=== PATIENT | female | born 1930 | race Caucasian/White ===

== ENCOUNTER 2017-07-01 12:05 | Inpatient (IN) | payer MEDICARE, OTHER ==
[2017-07-01] VITALS (10 sets, daily range): BP systolic 107–161; BP diastolic 39–85; PULSE 67–86; RESP 12–18; O2SAT 96–100
[~2017-07-01] VITALS: Ht 162.6 cm; Wt 74.0 kg
[~2017-07-01 12:05] MED LIST: ACET650T46 PO; AMLO5TAB2 PO; ASCO100089 PO; ASPI-973 PO; ATOR20TA PO; CHOL500011 PO; DOCU-41 PO; FOLI-52 PO; MECL-114 PO; OXYB5TAB10 PO; PANT40TA2 PO
--- NOTE | 2017-07-01 12:09 | ED.REPORT ---
HPI-General Illness Date of Service Jul 01, 2017 ED Provider: Darrin Faust MD Pt is a 87 y/o female with a history of pacemaker insertion, CAD, HTN, and peripheral vascular disease who presents to the ED via EMS c/o generalized weakness onset this morning. Pt reports she was walking when she felt lightheaded and fell to the floor. She has been feeling weak for the past 2-3 weeks, but her PCP did not address the issue. She doesn't know if she hit her head when she fell. She states that she has had previous symptoms before several years ago. Additional symptoms include nausea, abdominal pain that has resolved, and SOB that has resolved. She denies chest pain, palpitations, vomiting, diarrhea, fever, LOC, or dysuria. Nursing Notes Stated Complaint: WEAKNESS Chief Complaint: General Complaint Nursing Notes Reviewed: Yes Allergies: Coded Allergies: cefazolin (Verified Allergy, Intermediate, ???, 07/01/17) nitroglycerin (Verified Allergy, Intermediate, Severe dizziness, 07/01/17) codeine (Verified Allergy, Mild, Nausea, 07/01/17) Adhesives (Verified Adverse Reaction, Mild, Rash, 07/01/17) Scheduled Amlodipine (Amlodipine) 5 Mg Tablet 5 MG PO DAILY Ascorbic Acid (Vitamin C) 1,000 Mg Tab.chew 1,000 MG PO DAILY Aspirin (Aspirin) 81 Mg Tablet 81 MG PO DAILY Atorvastatin (Lipitor) 20 Mg Tablet 20 MG PO HS Cholecalciferol (Vitamin D3) (Vitamin D3) 5,000 Unit Tablet 5,000 UNIT PO DAILY Multivitamin/Iron/Folic Acid (Centrum Complete Multivit Tab) 1 Each Tablet 1 TAB PO DAILY Pantoprazole DR (Protonix) 40 Mg Tablet.dr 40 MG PO DAILY Scheduled PRN Acetaminophen Extended Release (Tylenol Arthritis Pain Extended-Release) 650 Mg Tablet.er 650 MG PO Q8H PRN PRN For Pain Docusate Sodium (Colace) 100 Mg Capsule 200 MG PO DAILY PRN PRN For Constipation Meclizine (Bonine) 25 Mg Tab.chew 25 MG PO TID PRN PRN For Dizziness Oxybutynin Chloride (Oxybutynin Chloride) 5 Mg Tablet 2.5 MG PO DAILY PRN PRN incontinence General Time Seen by MD: 12:06 Chief Complaint Weakness Hx Obtained From: Patient Arrived By: Ambulance Sudden in Onset?: Yes Caused by: Fall on ground Recent Healthcare: Recent doctor visit Similar Sx Previous: Yes Past Medical History Past Medical History 1. Coronary artery disease, with prior 90% LAD lesion, treated as above. 2. Hyperlipidemia. 3. Excess weight. 4. GERD. 5. Hypertension. 6. Osteoporosis by 2009 DEXA, declines bisphosphonate treatment. 7. Diverticulosis. 8. Urinary incontinence. 9. Chronic dizziness. 10. History of a fall, with subdural hematoma in 2011. 11. Chronic back and abdominal pain of unclear etiology, with negative workup. 12. Elevated alkaline phosphatase Past Surgical History 1. Right humerus open reduction and internal fixation after fracture. 2. Vein stripping. 3. Right hernia repair. 4. Cataract surgery. 5. Colonoscopy in 2002 and 2007. 6. 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 7. LAD stenting after rotablation in 2002 for a 90% LAD lesion. Reports: Pacemaker insertion Smoking History Never Smoker Social History Other Social History: Lives alone Ambulatory Status Wheelchair Review of Systems Full Review of Systems Constitutional: Reports: Weakness - generalized, Denies: Fever Respiratory: Reports: Shortness of breath (resolved) Cardiovascular: Denies: Chest pain, Palpitations GI: Reports: Abdominal pain (resolved), Nausea, Denies: Diarrhea, Vomiting Female: Denies: Dysuria Neurologic: Reports: Lightheaded, Syncope (near), Denies: Change LOC Complete sys rev & neg: except as marked. Physical Exam Vital Signs Vital Signs Date Time Temp Pulse Resp B/P Pulse Ox O2 Delivery O2 Flow Rate FiO2 07/01/17 15:32 83 107/47 07/01/17 15:32 78 137/58 07/01/17 15:31 73 141/51 07/01/17 13:44 86 12 110/39 97 Room Air 07/01/17 13:43 75 12 130/55 98 Room Air 07/01/17 13:42 67 15 138/57 100 Room Air 07/01/17 12:10 35.8 71 15 150/49 96 Room Air Initial VS: Reviewed Head / Eyes: Atraumatic, Normocephalic Neck: Supple, Full range of motion Extremities: Vascular intact, Neuro intact, No swelling, No tenderness Skin: Warm, Dry, No cyanosis Psychiatric: Mood/affect normal, Behavior normal, Normal thought content General/Constitutional: Awake, Alert Respiratory / Chest: Atraumatic, Breath sounds NL, Breath sounds = bilat, No respiratory distress Cardiovascular: Heart rate NL, Regular rhythm, Heart sounds NL Neurologic: Oriented X3, Speech NL, No motor deficits, No sensory deficits, CN II - XII intact, Cerebellar NL Interpretation & Diagnostics Lab Results Interpretation Result Diagram: 07/01/17 1228 07/01/17 1228 Test 07/01/17 12:28 07/01/17 14:09 White Blood Count 8.8th/mm3 (3.8-10.1) Red Blood Count 4.98mil/mm3 (3.90-5.20) Hemoglobin 15.2g/dL (12.0-15.6) Hematocrit 46.5% (35.0-46.0) Mean Corpuscular Volume 93.4fL (81-100) Mean Corpuscular Hemoglobin 30.5pg (27.0-35.0) Mean Corpuscular Hemoglobin Concent 32.7% (32.0-37.0) Red Cell Distribution Width 14.6% (12.3-15.4) Platelet Count 191bil/L (150-400) Neutrophils (%) (Auto) 79.0% (40-74) Lymphocytes (%) (Auto) 14.9% (14-46) Monocytes (%) (Auto) 5.0% (4-12) Eosinophils (%) (Auto) 0.6% (0-5) Basophils (%) (Auto) 0.3% (0-3) Sodium Level 138mEq/L (134-144) Potassium Level 4.6mEq/L (3.5-5.2) Chloride Level 100mEq/L (97-108) Carbon Dioxide Level 22mmol/L (18-29) Blood Urea Nitrogen 30mg/dL (8-27) Creatinine 1.43mg/dL (0.57-1.00) Estimat Glomerular Filtration Rate 50mL/min (>59) Glucose Level 122mg/dL (60-99) Calcium Level 10.1mg/dL (8.5-10.1) Magnesium Level 2.5mg/dL (1.6-2.6) Total Bilirubin 0.4mg/dL (0.0-1.2) Aspartate Amino Transf (AST/SGOT) 27U/L (0-50) Alanine Aminotransferase (ALT/SGPT) 12U/L (0-32) Alkaline Phosphatase 85U/L (25-165) Troponin T 0.010ug/L (0.0-0.011) Pro-B-Type Natriuretic Peptide 564.8pg/mL (0-738) Total Protein 7.6g/dL (6.4-8.4) Albumin 4.3g/dL (3.4-5.0) Lipase 32U/L (13-60) Urine Color Yellow (YELLOW) Urine Appearance Hazy (CLEAR,HAZY) Urine pH 6.0 (5.0-8.0) Urine Specific [place] 1.015 (1.003-1.035) Urine Protein Tracemg/dL (NEG,TRACE) Urine Glucose (UA) Negativemg/dL (NEGATIVE) Urine Ketones Negativemg/dL (NEGATIVE) Urine Occult Blood Negative (NEGATIVE) Urine Nitrite Negative (NEGATIVE) Urine Bilirubin Negative (NEGATIVE) Urine Urobilinogen Normalmg/dL (NORMAL) Urine Leukocyte Esterase Moderate (NEGATIVE) Urine RBC 0-2/hpf (0-2) Urine WBC 6-10/hpf (0-5) Urine Epithelial Cells Moderate/hpf (NONE-MOD) Urine Crystals None seen (NONE SEEN) Urine Bacteria Moderate/hpf (NONE-FEW) Urine Hyaline Casts None/lpf (NONE) Urine Granular Casts None seen (NONE SEEN) Urine Waxy Casts None seen (NONE SEEN) Urine Red Blood Cell Casts None seen (NONE SEEN) Urine White Blood Cell Casts None seen (NONE SEEN) Urine Mucus None seen (None Seen) Urine Trichomonas None seen (NONE SEEN) Urine Yeast None (NONE SEEN) Urinalysis Comment None Urine Culture Reflexed Indicated ECG Interpretation ECG Interpretation: Ventricular-paced rhythm, rate 66 Time: 12:36 Interpreted by: ED physician X-Ray Chest Interpretation Chest Xray Interpretation: IMPRESSION: No acute pulmonary process. Dictated by: Jessie Childress M.D. on 07/01/2017 at 13:17 Approved by: Jessie Childress M.D. on 07/01/2017 at 13:20 View: Portable, 1 view Interpretation / Wet Read by: Interpret - Radiologist Re-Eval/Medical Decision Med Decision/Clinical Course 87-year-old female presenting with weakness times several weeks and near syncope today. There is no cardiac program. She did have some lightheadedness. On arrival she was orthostatic. This improved with IV fluids. Her urine suggests UTI. Other workup was negative. Patient had difficulty ambulating with a walker. She requests to be admitted. No focal neuro deficits to suggest cva. She will be admitted for acute kidney injury, weakness, UTI, near syncope. Resident ordering IV antibiotics. Source of Hx: Old records Time of Eval: 14:44 Re-Evaluation/Progress Note: Patient rechecked. Discussed option for discharge or admit. Pt wants to wait to decide after more fluids. Time of Eval: 17:28 Re-Evaluation/Progress Note: Patient had difficulty ambulating. Plan to admit. Patient understands and agrees to plan. All questions were addressed Consultation : Referral / Consult Name: Abida Quan DO Consulted With: Hospitalist Call Returned at: 17:30 Crt: Agrees with eval, Agrees with plan, Accepts admit Note: Discussed pt's case with hospitalist, Dr. Quan. Counseled Regarding: Diagnosis, Lab results, Need for admission Discharge & Departure Primary Impression: UTI (urinary tract infection) Urinary tract infection type: site unspecified Hematuria presence: without hematuria Qualified Code: N39.0 - Urinary tract infection, site not specified Additional Impressions: Orthostatic hypotension Acute kidney injury Near syncope Disposition: ADMITTED TO HOSPITAL Discharge Condition All VS Reviewed: Yes Condition: Stable Referrals: Tyler Kirkpatrick MD (PCP) Scribe Attestation Portions of this note were transcribed by Geeta Boyer and Kae Shahid. I, Dr. Faust, personally performed the history, physical exam and medical decision-making; I reviewed and confirmed the accuracy of the information in the transcribed note. copies to: Tyler Kirkpatrick MD, Ben M MD Jul 01, 2017 12:09 Geeta Boyer Jul 01, 2017 12:16 Iman Shahid Jul 01, 2017 13:39
[2017-07-01] MEDS ORDERED: 0.9% Sodium Chloride 500 ML IV ONE ×2 (12:17→14:20)
[2017-07-01 12:36] LABS: BASOPHILS % (AUTO) 0.3 % (0-3); EOSINOPHILS % (AUTO) 0.6 % (0-5); Mean Corpuscular Hemoglobin 30.5 pg (27.0-35.0); Mean Corpuscular Volume 93.4 fL (81-100); Platelet Count 191 bil/L (150-400)
[2017-07-01 12:58] LABS: TROPONIN T 0.01 ug/L (0.0-0.011)
[2017-07-01 13:10] LABS: Magnesium 2.5 mg/dL (1.6-2.6)
--- NOTE | 2017-07-01 13:21 | DRSVH ---
PROCEDURE: X-RAY CHEST ONE VIEW, PORTABLE ([id number]) INDICATIONS: near syncope TECHNIQUE: One view of the chest was acquired. COMPARISON: [facility], , CHEST 1VW (PORTABLE), 06/05/2015, 14:13. FINDINGS: Surgical changes and devices: Pacemaker. Lungs and pleura: No pleural effusions or pneumothorax. Lungs are clear. Mediastinum: Mediastinal contours appear normal. Heart size is normal. Bones and chest wall: No suspicious bony lesions. Overlying soft tissues appear unremarkable. IMPRESSION: No acute pulmonary process. Dictated by: Jessie Childress M.D. on 07/01/2017 at 13:17 Approved by: Jessie Childress M.D. on 07/01/2017 at 13:20
[2017-07-01 14:32] LABS: APPEARANCE,URINE HAZY (CLEAR,HAZY); COLOR,URINE YELLOW (YELLOW)
[2017-07-01 14:33] LABS: OCCULT BLOOD,URINE NEGATIVE (NEGATIVE); UROBILINOGEN,URINE NORMAL (NORMAL)
[2017-07-01] MEDS ORDERED: Trimethoprim-Sulfa 160 mg-800 mg Tablet PO ONE (15:00)
[2017-07-01] MEDS ORDERED: Alum-Mag Hydrox-Simeth 30 mL Suspension PO PRN ×2 (17:40→17:55)
[2017-07-01] MEDS ORDERED: Ondansetron 2 mg/mL 2 mL Inj IVPUSH PRN ×2 (17:40→17:55)
[2017-07-01] MEDS ORDERED: Polyethylene Glycol (PEG) 17 Gm Powder PO PRN (17:55)
--- NOTE | 2017-07-01 18:46 | NUR ---
ADMIT TO [facility] [place] Report received from Sissy Turk, RN in ED. Pt arrived via gurney, unable to transfer by self to bed. Continuing with 2P assist for safety. Pt very weak and dizzy. Pt oriented to unit, room and call light. Pt reports 3/10 headache and denies SOB. Initial assessments completed. Board updated, plan of care related. Pt bad historian, friend at bedside leaving to get med list. MD in room to assess. NOC shift to complete admit and med rec. No s/sx of distress.
[2017-07-01] MEDS ORDERED: ASCO-294 PO (20:10)
[2017-07-01] MEDS ORDERED: ACET500C49 PO (20:10)
--- NOTE | 2017-07-01 20:50 | DRSVH ---
PROCEDURE: CT BRAIN WITHOUT CONTRAST ([id number]) INDICATIONS: FACIAL DROOP TECHNIQUE: Noncontrast 4.5 mm thick angled axial sections acquired from the foramen magnum to the vertex, with c oronal reformats. COMPARISON: [facility], CT, BRAIN W/O CONTRAST, 03/18/2013, 11:08. FINDINGS: Image quality: Excellent. CSF spaces: Basal cisterns are patent. No extra-axial fluid collections. The ventricles are symmet humza in size and shape. Brain: No intracranial bleeds or masses. There is moderate cerebral volume loss for age, with resul tant ventricular and sulcal prominence. There are moderate periventricular and deep white matter chr onic small vessel ischemic changes. There is intracranial internal carotid artery atherosclerosis. Skull and face: Calvarium and visualized facial bones appear intact, without suspicious lesions. Sinuses: Visualized sinuses and mastoids are clear. IMPRESSION: 1. No acute intracranial abnormalities. 2. Cerebral volume loss and chronic microvascular ischemic changes. Dictated by: Roxana Amin M.D. on 07/01/2017 at 20:46 Approved by: Roxana Amin M.D. on 07/01/2017 at 20:49
[2017-07-01] MEDS: CIPROFLOXACIN IV SCH (21:35)
[2017-07-01] MEDS ORDERED: 0.9% Sodium Chloride 1,000 ML IV ONE (22:05)
--- NOTE | 2017-07-01 22:14 | PCM.HPMED ---
Subjective Date of Service Jul 01, 2017 Primary Provider: Admitting Physician: Abida Quan DO Primary Care Physician: Tyler Kirkpatrick MD Attending Physician: Abida Quan DO Admit Status: From the Emergency Department, Admit to [place] Team Chief Complaint: Generalized weakness, Fall from ground level History of Present Illness: Ms. Leif Jeff is a very pleasant 87 year old lady with a past medical history significant for Hypertension, CAD s/p 2 stents ~ 4 years ago, pacemaker insertion ~ 5 years ago, peripheral vascular disease with 2 upper extremity stents who presents to the [facility] Emergency Department due to generalized weakness and non traumatic fall from ground level and could not get up. She reports feeling lightheaded but does not think she passed out or hit her head. She report feeling weak for 2-3 weeks, and has been progressively week for the past 7 days. Patient's neighbor is visiting in the room, and she notes that the patient has been appearing expression-less or flat for 1 week. Patient does report some dizziness, nausea at the moment, feeling cold and clammy and sweaty, leg pain bilaterally, endorsing slow rate loss .She reports mild nausea, intermittent mild fevers/chills, abdominal pain that has resolved, and SOB that has resolved. She denies change in vision, chest pain, palpitations , vomiting, diarrhea, dysuria. She reports chronic constipation. Social: Patient lives at home alone in [place]. She has several steps outside the home. She has 2 "helpers" at different times during the day. She ambulates with a walker. In the ED patients vitals: T-35.8, HR-71, RR-15, BP-150/49, 96% on RA. EKG reviewed - V-paced ~60. In the ED patient received: Statin, IV fluids. UA - contaminated. Repeat ordered. CXR - no acute cardiopulmonary process. CT brain- 1. No acute intracranial abnormalities. 2. Cerebral volume loss and chronic microvascular ischemic changes. Review of Systems: A comprehensive review of systems was conducted with the patient and found to be negative except as above in the History of Present Illness. Allergies Coded Allergies: cefazolin (Verified Allergy, Intermediate, ???, 07/01/17) nitroglycerin (Verified Allergy, Intermediate, Severe dizziness, 07/01/17) codeine (Verified Allergy, Mild, Nausea, 07/01/17) Adhesives (Verified Adverse Reaction, Mild, Rash, 07/01/17) Home Medications Scheduled Amlodipine (Amlodipine) 5 Mg Tablet 5 MG PO DAILY Ascorbic Acid (Vitamin C) 1,000 Mg Tab.chew 1,000 MG PO DAILY Aspirin (Aspirin) 81 Mg Tablet 81 MG PO DAILY Atorvastatin (Lipitor) 20 Mg Tablet 20 MG PO HS Cholecalciferol (Vitamin D3) (Vitamin D3) 5,000 Unit Tablet 5,000 UNIT PO DAILY Multivitamin/Iron/Folic Acid (Centrum Complete Multivit Tab) 1 Each Tablet 1 TAB PO DAILY Pantoprazole DR (Protonix) 40 Mg Tablet.dr 40 MG PO DAILY Scheduled PRN Acetaminophen Extended Release (Tylenol Arthritis Pain Extended-Release) 650 Mg Tablet.er 650 MG PO Q8H PRN PRN For Pain Docusate Sodium (Colace) 100 Mg Capsule 200 MG PO DAILY PRN PRN For Constipation Meclizine (Bonine) 25 Mg Tab.chew 25 MG PO TID PRN PRN For Dizziness Oxybutynin Chloride (Oxybutynin Chloride) 5 Mg Tablet 2.5 MG PO DAILY PRN PRN incontinence PMH 1. Coronary artery disease, with prior 90% LAD lesion, treated as above. 2. Hyperlipidemia. 3. Excess weight. 4. GERD. 5. Hypertension. 6. Osteoporosis by 2009 DEXA, declines bisphosphonate treatment. 7. Diverticulosis. 8. Urinary incontinence. 9. Chronic dizziness. 10. History of a fall, with subdural hematoma in 2011. 11. Chronic back and abdominal pain of unclear etiology, with negative workup. 12. Elevated alkaline phosphatase Surgical History 1. Right humerus open reduction and internal fixation after fracture. 2. Vein stripping. 3. Right hernia repair. 4. Cataract surgery. 5. Colonoscopy in 2002 and 2007. 6. 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 7. LAD stenting after rotablation in 2002 for a 90% LAD lesion. Reports: Pacemaker insertion Family History Father - heart disease Mother - healthy, old age Social History Hx Alcohol Use: No Hx Substance Use: No Hx Tobacco Use: No Smoking Status: Never Smoker Living Arrangement: Alone Exam Vital Signs Vital Sign - Last Date Time Temp Pulse Resp B/P Pulse Ox O2 Delivery O2 Flow Rate FiO2 07/01/17 15:32 83 107/47 07/01/17 13:44 12 97 Room Air 07/01/17 12:10 35.8 Exam General: Elderly lady lying in bed in no acute distress, well-developed, well- nourished, appropriately interactive HEENT: Normocephalic, atraumatic. External ears without defect. Pupils equal, round, and reactive to light and accommodation. Anicteric sclerae, moist conjunctivae, and no lid lag. Oropharynx free of erythema and cobble stoning with moist mucosa. Neck: Supple with full range of motion. No jugular venous distension. No bruits. No lymphadenopathy or thyromegaly. Cardiovascular: Regular rate and rhythm with no murmurs, rubs, or gallops appreciated Pulmonary: Clear to auscultation bilaterally with no crackles, wheezes, or rhonchi. Normal respiratory effort with no use of accessory muscles. Abdomen: Bowel tones present. Soft, nontender, nondistended. No hepatosplenomegaly or masses appreciated. Extremities: No clubbing, cyanosis, edema, or lymphadenopathy appreciated. Skin: Normal temperature, turgor, and texture; no rash, ulcers, or subcutaneous nodules appreciated. Neurological:Appears to have a left sided facial droop. Slight weakness in left leg, unk if this is baseline. Patient was unable to stand up on her own though she since had no pain. 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 Alert and oriented to person, place, and time. Flat facies Lab and Diagnostics Result Diagram: 07/01/17 1228 07/01/17 1228 X-Rays, CTs and MRIs CT BRAIN WITHOUT CONTRAST IMPRESSION: 1. No acute intracranial abnormalities. 2. Cerebral volume loss and chronic microvascular ischemic changes. Approved by: Roxana Amin M.D. on 07/01/2017 at 20:49 X-RAY CHEST ONE VIEW, PORTABLE IMPRESSION: No acute pulmonary process. Approved by: Jessie Childress M.D. on 07/01/2017 at 13:20 Assessment & Plan Ms. Leif Jeff is a very pleasant 87 year old lady with a past medical history significant for Hypertension, CAD s/p 2 stents ~ 4 years ago, pacemaker insertion ~ 5 years ago, peripheral vascular disease with 2 upper extremity stents who presents to the [facility] Emergency Department due to generalized weakness and non traumatic fall from ground level and could not get up. She is being treated for likely UTI. Generalized weakness, present on admission. Active. - Possibly 2nd to UTI - UA ordered and initially contaminated. Repeat ordered, Cx pending. - Ancef allergy, Received Bactrim in the ED. Started Ciprofloxacin IV. - EKG reviewed - V-paced ~60. - CXR - no acute cardiopulmonary process. - CT brain as above. - No acute intracranial abnormalities. - PT/OT ordered. Acute neurological symptoms . active -- Patient appears to have a slight left-sided facial droop, flat facies, weakness ongoing for 1 week. Patient also took herself off of atorvastatin. -- She states she cannot get an MRI because of her pacemaker -- We will order CT head WO: nad -- We will need to obtain records from PCP Dr. Calhoun, as it is unclear which of her symptoms are new -- Considering her symptoms started 1 week ago patient is outside TPA window -- Physical therapy ordered. -- We will restart patient's statin and aspirin Acute Kidney Injury, present on admission. Active. - Cr - 1.43, baseline ~ low 1's. - Holding home Amlodipine 5mg for now. - IV NS @ 75ml/hr for 1 L. -- Based on patient's next gen Labs she appeared to have 1.63 creatinine in May 2007 -- We will go ahead and order renal function labs, urine sodium, urine creatinine, urine eosinophils, uric acid, far less, mag levels -- Renal ultrasound is ordered -- Consider nephrology consult Acute Nausea, present on admission. Resolved. - Zofran / Meclizine 25 mg PRN. Chronic Conditions: History of various Vasculopathies: CAD x2 stents, PAD x2 stents. -Continue home statin. - ASA 81 mg daily. History of Hiatal Hernia/ GERD. - Continue home Pantoprazole. Hyperlipidemia - Patient reports d/c'ing home Atorvastatin 20 mg HS. She received 1 dose here. Constipation. - Continue home Stool softeners daily. Incontinence to urine. - Holding home oxybutynin for now. Social: Patient lives at home alone in [place]. She has several steps outside the home. She has 2 "helpers" at different times during the day. She ambulates with a walker. Acetaminophen for mild pain when necessary. Bowel regimen Senna and MiraLAX scheduled and PRN. Zofran when necessary for nausea and vomiting. SubQ heparin for now. SCDs in place. High-risk medications: NONE. CODE STATUS: Full code ( patient is unable to answer these questions, her friend and will bring her POLST form to [facility] in the a.m.) Patient Status: Patient is admitted under observation status with expected length of stay less than 2 midnights due to severity of presenting symptoms, risk of adverse event, and complexity of treatment plan. Pain Evaluation: Adequate Pain Control Resuscitation Status: DNR/DNI:Do Not Resuscitate/Intubate Time spent 45 minutes Attending Statement The patient was seen and examined together with Dr. iglesias on 07/01/17 and I agree with the history, exam and plan as outlined in the note above. . STEVEN IGLESIAS DO Jul 01, 2017 17:56 Abida Quan DO Jul 01, 2017 23:21
--- NOTE | 2017-07-01 22:34 | NUR ---
Nursing, PM [id number] Patient a/o, slight delay in responses. Denies pain/discomfort at this time. "My legs feel less shaky, and they're not hurting like they were earlier." 1-2PA for mobility r/t generalized weakness. tolerating RA, spo2 high 90s. IV Cipro infusing via LPIV, otherwise SL. Off floor for CT head for CVA workup. Caregiver Hannah visiting at bedside; appears attentive to patient. Tele ordered at , awaiting box from 2nd floor. Report to NICOLE Marquez. Addendum: 07/01/17 at 2352 by ELOISA KATE RN Addendum: NS at 75cc/hour via PIV. Tele: Vpaced 64 per campus monitor.
[2017-07-02] VITALS (7 sets, daily range): BP systolic 139–171; BP diastolic 79–84; PULSE 65–73; RESP 16–18; O2SAT 94–97
--- NOTE | 2017-07-02 00:20 | NUR ---
Transition of care This RN resumed care of pt at 2300. Pt c/o leg pain, 12/27, denying need of Rx. IVF infusing. Pt A&O. States to walk with FWW at home. Lives alone, has caregivers at times. Meals delivered by 'meals on wheels'. Bed in low position, upper rails up, call light in reach. Will continue to monitor.
[2017-07-02 07:17] LABS: BASOPHILS % (AUTO) 0.3 % (0-3); EOSINOPHILS % (AUTO) 1.2 % (0-5); MONOCYTES % (AUTO) 7.4 % (4-12); Mean Corpuscular Volume 93.6 fL (81-100); Platelet Count 142 bil/L (150-400)
[2017-07-02] MEDS: Pantoprazole 40 mg ER24 Tablet PO SCH (08:06)
[2017-07-02] MEDS: CIPROFLOXACIN IV SCH (08:06)
--- NOTE | 2017-07-02 10:48 | NUR ---
Case Management: [place] and Medicare Part D pamphlet delivered and explained to patient. Signed original placed in chart. Copy left at bedside. Rema Hicks RN
--- NOTE | 2017-07-02 11:39 | PCM.PNMED ---
Subjective Date of Service Jul 02, 2017 Subjective Pt reports continued lightheadedness. Eating diet this am without difficulty. c/ o of bilateral LE pain, 12/27 Exam Vital Signs Vital Sign - Last Date Time Temp Pulse Resp B/P Pulse Ox O2 Delivery O2 Flow Rate FiO2 07/02/17 10:49 73 07/02/17 09:50 36.4 16 139/81 97 Room Air Intake and Output 07/01/17 07/01/17 07/02/17 Cumulative From/Thru 15:00 23:00 07:00 07/01/17 12:10 - 07/02/17 06:03 Intake Total 500 ml 829 ml 1329 ml Output Total 650 ml 650 ml Balance 500 ml 179 ml 679 ml Intake Oral 200 ml 200 ml IV Total 500 ml 629 ml 1129 ml Output Urine Total 650 ml 650 ml Exam General: Elderly lady lying in bed in no acute distress, well-developed, well- nourished, appropriately interactive HEENT: Normocephalic, atraumatic. External ears without defect. Pupils equal, round, and reactive to light and accommodation. Anicteric sclerae, moist conjunctivae, and no lid lag. Oropharynx free of erythema and cobble stoning with moist mucosa. Neck: Supple with full range of motion. No jugular venous distension. No bruits. No lymphadenopathy or thyromegaly. Cardiovascular: Regular rate and rhythm with no murmurs, rubs, or gallops appreciated Pulmonary: Clear to auscultation bilaterally with no crackles, wheezes, or rhonchi. Normal respiratory effort with no use of accessory muscles. Abdomen: Bowel tones present. Soft, nontender, nondistended. No hepatosplenomegaly or masses appreciated. Extremities: No clubbing, cyanosis, edema, or lymphadenopathy appreciated. Skin: Normal temperature, turgor, and texture; no rash, ulcers, or subcutaneous nodules appreciated. Neurological: Appears to have a left sided facial droop. Slight weakness in left leg, unk if this is baseline. Patient was unable to stand up on her own though she since had no pain. MSK: Equal hand nylon hot wire cutter strength Psychiatric: Normal mood and affect. Alert and oriented to person, place, and time. Flat facies IVs and Medications Medications Reviewed: Medications were reviewed in detail Lab and Diagnostics Result Diagram: 8/16/17 0705 8/16/17 0705 X-Rays, CTs and MRIs CT BRAIN WITHOUT CONTRAST IMPRESSION: 1. No acute intracranial abnormalities. 2. Cerebral volume loss and chronic microvascular ischemic changes. Approved by: Roxana Amin M.D. on 07/01/2017 at 20:49 X-RAY CHEST ONE VIEW, PORTABLE IMPRESSION: No acute pulmonary process. Approved by: Jessie Childress M.D. on 07/01/2017 at 13:20 Assessment & Plan Ms. Leif Jeff is a very pleasant 87 year old lady with a past medical history significant for Hypertension, CAD s/p 2 stents ~ 4 years ago, pacemaker insertion ~ 5 years ago, peripheral vascular disease with 2 upper extremity stents who presents to the [facility] Emergency Department due to generalized weakness and non traumatic fall from ground level and could not get up. She is being treated for likely UTI. Generalized weakness, present on admission. Active. - Possibly 2nd to UTI. UA ordered and initially contaminated. Repeat ordered, Cx pending. - Ancef allergy, Received Bactrim in the ED. Started Ciprofloxacin IV->PO. - Repelte electrolytes prn. - CXR - no acute cardiopulmonary process. - CT brain as above. - No acute intracranial abnormalities. - PT/OT ordered. Pre-Syncope- POA, active- hx of pacemaker. Likely 2/2 to chronic Vertigo and is taking Meclizine. Positive Ortho VS in ED suggest hypovolemia component. Rcvd IVF. Rule out cardiac etiology. - Not likely due to Amlodipine. - Consider pacemaker interrogation. - EKG reviewed - V-paced ~60. - 07/02 Echo Pending. Acute neurological symptoms . active -- weakness ongoing for 1 week. Patient also took herself off of atorvastatin. -- She states she cannot get an MRI because of her pacemaker -- CT head: no acute abn. -- We will restart patient's statin and aspirin Acute Kidney Injury, present on admission. Active. - Cr - 1.43, baseline 1-1.3. - Holding home Amlodipine 5mg for now. - IV NS @ 75ml/hr for 1 L. -- Based on patient's next gen Labs she appeared to have 1.63 creatinine in May 2007 -- We will go ahead and order renal function labs, urine sodium, urine creatinine, urine eosinophils, uric acid, far less, mag levels -- Renal ultrasound is ordered -- Consider nephrology consult Acute Nausea, present on admission. Resolved. - Zofran / Meclizine 25 mg PRN. Chronic Conditions: History of various Vasculopathies: CAD x2 stents, PAD x2 stents. -Continue home statin. - ASA 81 mg daily. History of Hiatal Hernia/ GERD. - Continue home Pantoprazole. Hyperlipidemia - Patient reports d/c'ing home Atorvastatin 20 mg HS. She received 1 dose here. Constipation. - Continue home Stool softeners daily. Incontinence to urine, chronic. - resume oxybutynin Social: Patient lives at home alone in [place]. She has several steps outside the home. She has 2 "helpers" at different times during the day. She ambulates with a walker. Acetaminophen for mild pain when necessary. Bowel regimen Senna and MiraLAX scheduled and PRN. Zofran when necessary for nausea and vomiting. High-risk medications: NONE. Patient Status: Patient is admitted under observation status with expected length of stay less than 2 midnights due to severity of presenting symptoms, risk of adverse event, and complexity of treatment plan. VTE Mechanical Devices: Intermittant Pneumatic CD Resuscitation Status: DNR/DNI:Do Not Resuscitate/Intubate Lucius Sanchez MD Jul 02, 2017 11:39
--- NOTE | 2017-07-02 11:55 | DRSVH ---
[facility] [address] [place] [address] Echocardiogram Report Name: MAURIZIO AREVALO Study Date: 07/02/2017 Height: 64 in Hospital Exam Location: [facility] Weight: 163 lb Gender: Female BSA: 1.8 m2 : 1930 Age: 87 yrs BP: 168/79 m mHg Reason For Study: FALL, FACIAL DROOP Ordering Physician: Performed By: Rola Hebert Referring Physician: FRANCIS GARBER Interpretation Summary The left ventricle is normal in size. The ejection fraction is estimated to be 55-60%. The right ventricle is mildly dilated. There is a pacemaker lead in the right ventricle. There is mild tricuspid regurgitation. The right ventricular systolic pressure is estimated at least 26 mmHg assuming a right atrial pressure of 3 mm Hg. Procedure: A two-dimensional transthoracic echocardiogram with color flow and Doppler was performed. The study quality was technically adequate. Images from the parasternal window were difficult to obtain and are suboptimal in quality. Comparison is made with the echocardiogram of 07/07/14. The patient has a paced rhythm. Left Ventricle: The left ventricle is normal in size. The left ventricular ejection fraction is normal. The ejection fraction is estimated to be 55-60%. There are no focal wall motion abnormalities. Diastolic function could not be accurately assessed due to paced rhythm. Right Ventricle: The right ventricle is mildly dilated. There is a pacemaker lead in the right ventricle. The right ventricular systolic function is normal. Atria: The left atrial size is normal. Right atrial size is normal. There is no Doppler evidence for an interatrial shunt. Mitral Valve: There is mild mitral annular calcification. The mitral valve is normal. The mitral valve leaflets appear to open well. There is trace mitral regurgitation. Aortic Valve: The aortic valve is trileaflet. The aortic valve is slightly calcified. The aortic valve opens well. No aortic regurgitation is present. Tricuspid Valve: The tricuspid valve is normal. There is mild tricuspid regurgitation. The right ventricular systolic pressure is estimated at least 26 mmHg assuming a right atrial pressure of 3 mm Hg. Compared to the prior echo exam, there has been a decrease in the severity of pulmonary hypertension. Pulmonic Valve: The pulmonic valve is not well visualized. There is a trace or physiologic amount of pulmonic regurgitation. Great Vessels: The aortic root is normal size. The ascending aorta is normal in size. The aortic arch is normal in size. The pulmonary artery is not well visualized, but is probably normal size. The IVC is of normal diameter and collapses greater than 50% with a sniff. This suggests a low right atrial pressure of 3 mm Hg. Pericardium/ Pleura There is no pericardial effusion. There is no pleural effusion. MMode/2D Measurements & Calculations LVIDd: 4.4 cm RA long axis LVOT diam: 1.8 cm LVIDs: 2.7 cm LA A2 area: 16.9 cm AoV Opening FS: 38.7 % LA A4 area: 19.1 cm RA area EPSS: 0.26 cm LA length (vol) Ao root diam IVSd: 1.1 cm : 16.7 cm LVPWd: 0.74 cm LA vol: 50.3 ml RA vol asc Aorta Diam LA vol index : 42.4 ml RA Ao Arch Diam (Prox : 23.6 mm2 Trans): 2.8 cm IVC diam: 0.86 cm LV santo. diameter/BSA LV sys. diameter/BSA RVD1 (basal) RVD2 (mid): 3.8 cm (cm/m^2): 2.5 (cm/m^2): 1.5 Doppler Measurements & Calculations Ao V2 max MV E max david MV E/A: 0.60 TR max david : 116.9 cm/sec : 50.8 cm/sec : 239.7 cm/sec Ao max PG MV A max david TR max PG : 5.5 mmHg : 84.8 cm/sec : 23.0 mmHg Ao mean PG MV P1/2t: 53.0 msec PA V2 max : 111.0 cm/sec LVOT Max David PA mean PG : 97.5 cm/sec PA Accel Time GONZALES(I,D): 2.6 cm : 0.11 sec sev ratio: 1.0 MV dec time MV P1/2t max david Ao V2 mean LV V1 max PG : 0.18 sec : 82.0 cm/sec MVA(P1/2t): 4.2 cm2 Ao V2 VTI LV V1 VTI: 23.1 cm GONZALES(V,D): 2.2 cm2 PA V2 mean GONZALES indexed to BSA : 70.4 cm/sec (cm^2/m^2): 1.5 Electronically signed by: Zane Rose on Reading Physician:07/02/2017 11:55 AM
--- NOTE | 2017-07-02 12:21 | NUR ---
Evaluation completed. Please go to "Notes" then click on "Assessments and Notes" (bottom left corner of screen). Then select appropriate discipline tab on top of screen.
--- NOTE | 2017-07-02 15:00 | NUR ---
Social Work-initial assessment: Data:See initial assessment. Pt is a 87 y/o female who was admitted on 07/01/17 for UTI and Weakness per H&P. Pt's insurance is [facility] [employer] and PCP is Tyler Kirkpatrick MD. EMR reviewed. MIRANDA met with pt and friend Kandy at bedside, SW role explained. Pt is alert and oriented x3. Pt resides at home alone, but has private pay caregivers that come in 5 days a week for 4 hours. Pt uses a fww at baseline and does not drive. Pt has history with [facility] and has been to [facility] in the past. Pt has no senior living care insurance or VA benefits. SW discussed DPOA/ advanced directive, pt confirms this has been completed, SW encouraged a copy to be brought in. SW provided pt with discharge planning checklist and encouraged pt to call with any questions, phone number provided. MD order received for SNF placement. PT saw pt and is recommending SNF vs home with 24/7 care. Pt is currently under observation status, so SNF would not be covered by her Medicare. SW explained this to pt and friend. Pt and friend state an understanding. Pt and friend at this time do not feel like pt is in a place to be able to return home. Pt and friend would like to explore private pay SNF, SNF choice list provided. Pt and friend would like a referral to [facility] for private pay and would like to find out how much this would be and then think about it. MIRANDA called Yaa at [facility], Yaa states cost would be $295.00 a day and they would need to pay 7 days up front. SW provided this informaiton to Pt and friend. SW provided access in [employer] and faxed PASRR and facesheet to [facility] for review. Paperwork and PASRR in the chart. SW will continue to follow. Assessment:Pt who would benefit from SNF. Plan:Referral made [facility]. Information provided to Pt and friend for private pay amount. Pt and friend to think about this and SW to check back in tomorrow. Paperwork and PASRR in the chart. SW will continue to follow. CHAVA Meza Addendum: 07/02/17 at 1517 by DILLAN BELLE SS Amended: Links added.
--- NOTE | 2017-07-02 15:58 | DRSVH ---
PROCEDURE: US BILATERAL DUPLEX DOPPLER IMAGING OF THE CAROTIDS ([id number]) INDICATIONS: fall, facial droop TECHNIQUE: Color and pulse Doppler interrogation was performed of both carotid systems, with image documentation and velocity measurements. COMPARISON: [facility], US, US VENOUS REFLUX DPLX UNI LT, 05/17/2016, 13:29. FINDINGS: All stenosis calculations are based on NASCET criteria. Right side: Brachial blood pressure: 146/78 mm Hg. Common Carotid Artery(Distal) PSV: 89.70 cm/s Internal Carotid Artery PSV- Proximal: 75.20 cm/s Mid-lon.90 cm/s Distal: 81 cm/s EDV - Proximal: 15.60 cm/s Mid-lon.70 cm/s Distal: 15.60 cm/s External Carotid Artery(Proximal) PSV: 93.70 cm/s ICA/CCA PSV ratio: 0.9 Pat scale imaging description: Mild atheromatous plaque. Percent internal carotid artery stenosis: Less than 50% stenosis.. Vertebral artery: Flow direction is antegrade. Left side: Brachial blood pressure: 142/82 mm Hg. Common Carotid Artery(Distal) PSV: 102.40 cm/s Internal Carotid Artery PSV - Proximal: 95.40 cm/s Mid-lon.50 cm/s Distal: 65.40 cm/s EDV - Proximal: 11.60 cm/s Mid-lon.90 cm/s Distal: 14.30 cm/s External Carotid Artery(Proximal) PSV: 79.30 cm/s ICA/CCA PSV ratio: 0.9 Pat scale imaging description: Mild atheromatous plaque. New occlusion of the left vertebral artery. Percent internal carotid artery stenosis: Less than 50%. Vertebral artery: New left vertebral artery occlusion. IMPRESSION: 1. Interval left vertebral artery occlusion. Recommend confirmation with CT angiogram. 2. Less than 50% stenosis in both internal carotid arteries via NASCET criteria. Dictated by: Sb Pina M.D. on 07/02/2017 at 15:45 Approved by: Sb Pina M.D. on 07/02/2017 at 15:57
--- NOTE | 2017-07-02 18:16 | NUR ---
Activity: Patient does not seem to want to move much on her own. Encouraged to turn in the bed, assist more with moving to edge of bed when getting up to toilet and be OOB to chair for meals.
[2017-07-03] VITALS (9 sets, daily range): BP systolic 124–169; BP diastolic 74–90; PULSE 67–78; RESP 16; O2SAT 95–97
--- NOTE | 2017-07-03 05:31 | NUR ---
NOC Activity Pt is alert and oriented. No complains of chest pain, sob, n/v or abd discomfort. Needs assistance in getting up using the BSC. HS meds administered as scheduled. VSS and WNL. Intentional hourly rounding in effect.
[2017-07-03 08:30] LABS: BASOPHILS % (AUTO) 0.1 % (0-3); EOSINOPHILS % (AUTO) 2.6 % (0-5); MONOCYTES % (AUTO) 5.8 % (4-12); Mean Corpuscular Hemoglobin 30.3 pg (27.0-35.0); Mean Corpuscular Volume 93.7 fL (81-100); Platelet Count 151 bil/L (150-400)
--- NOTE | 2017-07-03 08:47 | NUR ---
[facility] can accept pt with Dr. Nuens to follow. CHAVA Meza
[2017-07-03 09:00] LABS: ERYTHROCYTE SEDIMENTATION RATE 16 mm/hr (0-40)
[2017-07-03] MEDS: Pantoprazole 40 mg ER24 Tablet PO SCH (09:00)
[2017-07-03] MEDS: 0.9% Sodium Chloride 1,000 ML IV SCH ×2 (12:04→23:01)
--- NOTE | 2017-07-03 12:20 | NUR ---
Case Management: [facility] delivered and explained; Signed original placed in chart. Copy left at bedside. Rema Hicks RN
[2017-07-03 12:34] LABS: APPEARANCE,URINE SLIGHTLY CLOUDY (CLEAR,HAZY); COLOR,URINE YELLOW (YELLOW); OCCULT BLOOD,URINE TRACE (NEGATIVE); UROBILINOGEN,URINE NORMAL (NORMAL)
--- NOTE | 2017-07-03 15:48 | NUR ---
Social Work-continued d/c planning: Data:EMR reviewed. Pt is on day 2 of hospitalization for UTI and weakness per H&P. pt is not medically stable. SW updated by SHENA RIVERA that pt has been switched to inpt status today. SW followed up with pt and friend Kandy at bedside, SW role explained. Pt and friend had already been updated that pt had been switched to inpt. SW explained that [facility] has accepted pt. SW explained that if pt does not have medical reason to be in the hospital,MD cannot keep pt here just for Medicare to pay for SNF. SW explained if pt is medically stable prior to getting three day stay then pt would need to move forward with paying privately for SNF. Pt and friend state an understanding. Paperwork and PASRR in the chart. SW will continue to follow. Assessment:Pt who would benefit from SNF. Plan:Pt has been accepted at [facility] when medically stable. Pt just switched to inpt status today. SW explained if pt is medically stable prior to getting three day stay then pt would need to move forward with paying privately for SNF. Pt and friend state an understanding. Paperwork and PASRR in the chart. SW will continue to follow. CHAVA Meza
--- NOTE | 2017-07-03 16:40 | DRSVH ---
PROCEDURE: CT ANGIO HEAD AND NECK (P) INDICATIONS: 87 year-old female with left vertebral artery occlusion on recent carotid duplex. TECHNIQUE: Pre-contrast 4.5 mm thick sections acquired from the foramen magnum to the vertex. After the adminis tration of intravenous contrast, 1 mm thick sections acquired from the aortic arch through the [place] of [place]. Post-contrast 4.5 mm thick sections then re-acquired from the foramen magnum to the vert ex. 3-dimensional hpnqnyd-ifivrrape-xigfvcelrs (MIP) and/or volume rendering reformats were acquired of the central intracranial vasculature and neck separately. For radiation dose reduction, the foll owing was used: automated exposure control, adjustment of mA and/or kV according to patient size. COMPARISON: [facility], CT, CT BRAIN WO CON, 07/01/2017, 20:29. [facility], US, US CAROTID DPLX DOPPLER BILAT, 07/02/2017, 11:55. FINDINGS: Image quality: Excellent. BRAIN: CSF spaces: Ventricles are normal in size and shape. Basal cisterns are patent. No extra-axial flu id collections. Brain: No midline shift. No intracranial bleeds or masses. There is moderate periventricular and de ep white matter chronic small vessel ischemic change. There is patchy intracranial internal carotid a rtery atherosclerosis. Skull and face: Calvarium and facial bones appear intact, without suspicious lesions. Orbits appear normal. Sinuses: There is asymmetric moderate right mastoid air cell fluid. Visualized sinuses appear clear. HEAD CT ANGIOGRAPHY: Anterior circulation: Intracranial internal carotid arteries are normal in size and flow. The flow within the paired anterior cerebral arteries is normal and symmetric. The flow within the middle cer ebral arteries is normal and symmetric. The anterior communicating artery is seen. No aneurysms are seen. Posterior circulation: Visualized portions of the vertebral arteries appear patent, and join to form a normal appearing basilar artery. The right vertebral artery is dominant. Flow within the posterio r cerebral arteries is normal and symmetric, with origin of the left posterior cerebral artery. No aneurysms are seen. NECK CT ANGIOGRAPHY: Carotid system: The great vessels demonstrate a conventional anatomy as they arise from the aortic a rch. The origins of the common carotid arteries appear patent. The common carotid arteries demonstr ate normal caliber and courses. The left carotid bifurcation appears widely patent. There is minimal stenosis involving the origin of the right internal carotid artery from atherosclerotic calcification . The internal carotid arteries demonstrate normal calibers and courses more superiorly. Posterior circulation: The origins of the vertebral arteries both appear patent, with atheroscleroti c calcification at the origin of the nondominant left vertebral artery. The more superior extracrani al portions of both vertebral arteries also demonstrate normal opacification. They join to form a no rmal appearing basilar artery. Soft tissues: Visualized neck soft tissues demonstrate no suspicious abnormalities. Bones: No suspicious bony lesions. Visualized cervical spine appears normally aligned. IMPRESSION: 1. Left vertebral artery is nonvisualized on recent carotid duplex, but the nondominant artery does a ppear patent throughout its length on CT angiography, with stenosis at its origin from atheroscleroti c calcification. 2. Less than 50% stenosis involves the origin of the right internal carotid artery from atherosclerot ic calcification. Left carotid bifurcation appears widely patent. 3. Asymmetric moderate right mastoid air cell fluid may suggest mastoiditis. 4. No acute intracranial abnormalities. Moderate periventricular and deep white matter chronic small vessel ischemic change. 5. No hemodynamically significant lesions of the central intracranial vasculature. origin of th e left posterior cerebral artery is present, a vascular anatomic variant. Dictated by: Truman Rowland M.D. on 07/03/2017 at 16:24 Approved by: Truman Rowland M.D. on 07/03/2017 at 16:38
--- NOTE | 2017-07-03 17:23 | NUR ---
AFFECT Patient appears depressed, flat affect. Two person assist to BSC, friends in room state "she just doesn't have any energy". Patient c/o constipation, Miralax given with prune juice. CT Angiogram done today (-). Concerns about insurance and billing. UA showing few bacteria in comparison to previous UA showing moderate bacteria, patient on PO antibiotics.
--- NOTE | 2017-07-03 20:00 | CONS ---
[address] [address] CONSULTATION REPORT PATIENT: MAURIZIO AREVALO : 1930 MR#: [id number] ADMIT: 07/01/2017 JOB ID: [id number] DATE OF SERVICE: 07/03/2017 NEUROLOGY CONSULTATION: REQUESTING PROVIDER: Lucius Sanchez MD CHIEF COMPLAINT: Generalized weakness. HISTORY OF PRESENTING ILLNESS: The patient is a pleasant 87-year-old, right-handed woman with multiple medical problems who presented due to a fall. However, she reports that over the past several weeks she has felt gradual onset of generalized weakness. A neighbor has noted change in expression for the past one week. She does have a history of vertigo and does note intermittent vertigo and nausea. She has also noted new onset of an intermittent resting tremor. This is present on both sides, however most prominent in the right upper extremity. She does note gradual onset of bradykinesia and reports that she feels that she has also developed dysphonia. She does live at home alone. There are several steps outside her home. She does have helpers that come visit her. She ambulates with a walker. REVIEW OF SYSTEMS: A complete review of systems was performed and was remarkable for the above noted. She does have a pacemaker. She reports no history of a stroke. She reports no history of seizures. She has not noted any other new neurologic symptoms. She does have a history of syncopal episodes in the past that were thought to be secondary to her cardiac condition as well as a history of intermittent vertigo for which she underwent vestibular rehab in the past. PRIMARY CARE PROVIDER: Dr. Kirkpatrick ALLERGIES: CEFAZOLIN, NITROGLYCERIN, CODEINE, AND ADHESIVES. HOME MEDICATIONS: Include amlodipine, ascorbic acid, aspirin 81 mg daily, atorvastatin 20 mg at night, vitamin D, multivitamin, pantoprazole. PRN medications include acetaminophen extended release, docusate, meclizine, and oxybutynin. She does report that she stopped the atorvastatin recently at she felt that it may have caused her generalized weakness. PAST MEDICAL HISTORY: Significant for coronary artery disease with a history of a prior 90% LAD lesion, hyperlipidemia, gastroesophageal reflux disease, hypertension, osteoporosis, diverticulosis, urinary incontinence, chronic dizziness (that is vertigo), history of a fall in the past with a subdural hematoma in 2011, chronic lower back and abdominal pain with negative workup so far, and elevated alkaline phosphatase. PAST SURGICAL HISTORY: Status post right humerus open reduction internal fixation after a fracture. Reportedly underwent vein stripping surgeries, right hernia repair, cataract surgery, colonoscopies, pacemaker placed for third-degree AV block, left LAD stenting in 2002. FAMILY HISTORY: No neurological disorders. SOCIAL HISTORY: She lives alone, however does have close friends in the area and a daughter in [place]. No tobacco, alcohol, or drugs. IMAGING STUDIES: She did have a chest x-ray which demonstrated no acute pulmonary process. A CT of the head was performed, which demonstrated no acute intracranial abnormalities, cerebral volume loss, and chronic microvascular ischemic changes. A carotid duplex was performed, which demonstrated interval left vertebral artery occlusion. Recommend confirmation with CT angiogram. Less than 50% stenosis in the bilateral carotid arteries. She did undergo a CT angiogram today which demonstrated left vertebral artery was not visualized on a recent carotid duplex but the nondominant artery does appear patent throughout its length on the CT angiography with stenosis at its origin from atherosclerotic calcifications. Less than 50% stenosis involving the origin of the right internal carotid artery from atherosclerotic calcification. Left carotid bifurcation appears widely patent. Asymmetric moderate right mastoid air cell fluid may suggest mastoiditis. No acute intracranial abnormalities. Moderate periventricular and deep white matter chronic small vessel ischemic changes. No hemodynamically significant lesions of the central intracranial vasculature. origin of the left posterior cerebral artery was noted, a vascular anatomic variant. The origins of the vertebral arteries both appear patent, with atherosclerotic calcification at the origin of the nondominant left vertebral artery. The more superior extracranial portions of both vertebral arteries also demonstrate normal opacification; they join to form a normal-appearing basilar artery. LABORATORY STUDIES: Initial WBC 8.8, hemoglobin 15.2, hematocrit 46.5, platelets of 181. Chemistries: Sodium 138, potassium 4.6, chloride was 100, bicarb was 22, BUN was 30, creatinine 1.43, glucose 122. LFTs were within normal limits. Creatinine today 1.36. PHYSICAL EXAMINATION: Temperature 36.8, pulse of 68, respiratory rate of 16, blood pressure 164/81, pulse oximetry 95% on room air. General: She is a well-developed, well-nourished woman, in no acute distress. Head: Normocephalic, atraumatic. Neck: Supple. No carotid bruits were auscultated bilaterally. Negative Kernig. Negative Brudzinski. Chest: Clear to auscultation. Heart: Regular rate and rhythm. Abdomen: Soft, nondistended, nontender. Extremities: No cyanosis, clubbing, or edema. There is a scar which she attributes to vein stripping over the distal aspect of her left lower extremity, right above the left medial malleolus. NEUROLOGIC EXAMINATION: Mental status: She is awake, alert, and oriented x3. Speech clear and fluent, although dysphonic. No aphasia was noted. She did appear to have a masked facies with hypomimia. Cranial nerves: Pupils equal, round, and reactive to light. Extraocular movements were intact, with no evidence of nystagmus. They appeared conjugate, with no evidence of nystagmus. Face appeared symmetrical. There was masked facies with hypomimia. Facial sensation was intact to light touch and temperature. Auditory sensation was intact to finger rub. Palatal elevation was symmetrical. Tongue was midline. Sternocleidomastoids and trapezii are 5/5 bilaterally. Motor: There is increased tone in the right upper and right lower extremities, most prominent in the right upper extremity. Tone is mildly increased in the left upper and left lower extremities. There is a mild degree of slowing of finger tapping, as well as hand opening and closing, and rapidly alternating movements bilaterally but most prominent in the right upper extremity. There was an intermittent resting 4-6 hertz tremor that was noted bilaterally, but most prominent at rest in the right upper extremity. Sensation was intact to light touch and temperature. Vibration was reduced at the great toes bilaterally, however was present at the malleolus bilaterally. Deep tendon reflexes were 2+, with the exception of at the Achilles where they were trace. Plantars were flexor bilaterally. Gait was deferred. IMPRESSION: Given the clinical history, my suspicion is that she does have Parkinson disease. Based on the CT angiography findings of demonstrating evidence of calcifications present in the vertebral artery I do recommend optimization of control of stroke risk factors including hypertension and hyperlipidemia. I do also recommend that she be on antiplatelet therapy. Given that she does not have marked calcifications, stenosis of major arteries accounting for any transient ischemic attack symptoms, or a cerebrovascular accident, I would defer on dual antiplatelet therapy. Especially, given the fact that she has Parkinson disease, she has an increased fall risk. I would continue to optimize control, though, of her stroke risk factors including hypertension and hyperlipidemia, and continue on aspirin 81 mg daily. She would also benefit from an evaluation by physical therapy and occupational therapy and a possible placement in a halfway facility to focus on rehabilitation. I do recommend initiation of carbidopa/levodopa. I did discuss this in detail with her and we have reviewed the side effects which may include dizziness and nausea. I do recommend starting carbidopa/levodopa 25/100, starting at half a tablet three times daily for one week and then increasing to one tablet three times daily thereafter. She would also benefit from evaluation by physical therapy and occupational therapy, and the importance of regular exercise. I do also recommend that she follow up with her primary care provider and possibly, at some point, follow up in the Neurology Clinic. Thank you, again, Dr. Sanchez, for allowing me to participate in the care of your patient. Please feel free to contact me with any questions or concerns. ADDITIONAL INFORMATION: I would start carbidopa/levodopa 25/100 one-half tablet three times a day tomorrow, then I would like to increase it to one full tablet three times a day on Friday. I would like to then assess if she can tolerate this medication and to see the full impact of the medication prior to transitioning to a halfway facility. Given her fall risk and the results of her computed tomography angiogram, I believe she can continue on a single antiplatelet agent, in this case aspirin 81 mg daily, and she would benefit from continued optimization of control of her stroke risk factors. It is unclear at this point if she did sustain a transient ischemic attack as the etiology of her event, or in fact if this is secondary to underlying Parkinson disease. In light of the evidence of intracranial calcifications, it is important to optimize control of her stroke risk factors. She was also diagnosed with a urinary tract infection and started on ciprofloxacin in the emergency department. Overall, though, I do suspect that her fall was likely secondary to her Parkinson disease and less likely to be secondary to a transient ischemic attack. Addenda added by FLORENCIA 07/04/17 at 7:01am
[2017-07-04 01:09] VITALS: BP 153/81; PULSE 60; RESP 16; O2SAT 92
[2017-07-04 03:10] LABS: Free Thyroxine Index 2.9 (1.2-4.9); Thyroxine (T4) 8.6 ug/dL (4.5-12.0)
--- NOTE | 2017-07-04 05:46 | NUR ---
NOC Activity Upon assisting pt to get to the bedside commode, pt appears to be stuck and unable to move her legs. 2 person assist needed in Assisting the pt to get the commode. Denies chest pain, sob, n/v or abd discomfort. Pt is aware of the plan to possibly take Anti-parkinsonian meds. IVF running, as ordered, VSS and WNL. Afebrile throughout the night.
[2017-07-04 05:56] VITALS: PULSE 64
[2017-07-04 06:18] VITALS: BP 144/87; PULSE 78; RESP 16; O2SAT 96
[2017-07-04] MEDS: Pantoprazole 40 mg ER24 Tablet PO SCH (08:57)
[2017-07-04] MEDS: 0.9% Sodium Chloride 1,000 ML IV SCH (08:57)
--- NOTE | 2017-07-04 13:53 | PCM.PNMED ---
Subjective Date of Service Jul 04, 2017 Subjective Pt slept comfortably at night and feels less sleepy this morning. She is aware of plan to start Anti-Parkinson meds today and says her daughter spoke with the Neurologist last night. Exam Vital Signs Vital Sign - Last Date Time Temp Pulse Resp B/P Pulse Ox O2 Delivery O2 Flow Rate FiO2 07/04/17 06:18 36.6 78 16 144/87 96 Room Air Intake and Output 07/03/17 07/03/17 07/04/17 Cumulative From/Thru 15:00 23:00 07:00 07/01/17 12:10 - 07/04/17 06:16 Intake Total 950 ml 1206 ml 4413 ml Output Total 1950 ml 4800 ml Balance -1000 ml 1206 ml -387 ml Intake Oral 846 ml 1954 ml IV Total 104 ml 1206 ml 2459 ml Output Urine Total 1950 ml 4800 ml # Bowel Movements 0 Exam General: Elderly lady lying in bed in no acute distress, well-developed, well- nourished, appropriately interactive HEENT: Normocephalic, atraumatic. External ears without defect. Pupils equal, round, and reactive to light and accommodation. Anicteric sclerae, moist conjunctivae, and no lid lag. Oropharynx free of erythema and cobble stoning with moist mucosa. Neck: Supple with full range of motion. No jugular venous distension. No bruits. No lymphadenopathy or thyromegaly. Cardiovascular: Regular rate and rhythm with no murmurs, rubs, or gallops appreciated Pulmonary: Clear to auscultation bilaterally with no crackles, wheezes, or rhonchi. Normal respiratory effort with no use of accessory muscles. Abdomen: Bowel tones present. Soft, nontender, nondistended. No hepatosplenomegaly or masses appreciated. Extremities: No clubbing, cyanosis, edema, or lymphadenopathy appreciated. Skin: Normal temperature, turgor, and texture; no rash, ulcers, or subcutaneous nodules appreciated. Neurological: Appears to have a left sided facial droop. Slight weakness in left leg, unk if this is baseline. Patient was unable to stand up on her own though she since had no pain. 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 Alert and oriented to person, place, and time. Flat facies IVs and Medications Medications Reviewed: Medications were reviewed in detail Lab and Diagnostics Result Diagram: 07/03/17 0815 07/04/17 0558 X-Rays, CTs and MRIs CT BRAIN WITHOUT CONTRAST IMPRESSION: 1. No acute intracranial abnormalities. 2. Cerebral volume loss and chronic microvascular ischemic changes. Approved by: Roxana Amin M.D. on 07/01/2017 at 20:49 X-RAY CHEST ONE VIEW, PORTABLE IMPRESSION: No acute pulmonary process. Approved by: Jessie Childress M.D. on 07/01/2017 at 13:20 Assessment & Plan Ms. Leif Jeff is a very pleasant 87 year old lady with a past medical history significant for Hypertension, CAD s/p 2 stents ~ 4 years ago, pacemaker insertion ~ 5 years ago, peripheral vascular disease with 2 upper extremity stents who presents to the [facility] Emergency Department due to generalized weakness and non traumatic fall from ground level and currently being worked up for weakness and gait ataxia with suspicion of Parkinson's disease. Generalized weakness with gait imbalance, present on admission. Active. - unclear etiology. suspicion of Parkinson's disease. Posterior circulation abnormality ruled out per CTA 07/03. Does not appear to be syncope related. - CT brain as above. - No acute intracranial abnormalities. - Tx for UTI, no other evidence of infection. CXR - no acute cardiopulmonary process. - Repelte electrolytes prn. - Neurology Consulted- Dr. Lea- suspicion of Parkinson's diseas. rec starting Carbidopa-Levodopa at 1/2 Tab TID on 07/04 and inc to 1 full tab TID if tolerates. - PT rec SNF. Pre-Syncope- poa, resolved. Hx of Pacemaker- Likely 2/2 to chronic Vertigo and is taking Meclizine. Positive Ortho VS in ED suggest hypovolemia component. Rcvd IVF. Less likely cardiac etiology. - EKG reviewed - V-paced ~60. - Echo- EF 55-60%. No major structural abn. - Amlodipine was held, can resume if BP elevated. Acute Kidney Injury, present on admission. Active. - Cr - 1.43, baseline 1-1.3. Likely 2/2 to prerenal etiology on admit. - Pt given contrast for CTA. Will continue w/ pre and post IVF tx for Contrast induced Nephropathy, Monitor Scr over next 2 days. - Consider nephrology consult UTI- poa, resolved. Treated with Ciprofloxacin for 3 days. Acute Nausea, present on admission. Resolved. - Zofran / Meclizine 25 mg PRN. Chronic Conditions: History of various Vasculopathies: CAD x2 stents, PAD x2 stents. -Continue home statin. - ASA 81 mg daily. History of Hiatal Hernia/ GERD. - Continue home Pantoprazole. Hyperlipidemia - Patient reports d/c'ing home Atorvastatin 20 mg HS. She received 1 dose here. Constipation. - Continue home Stool softeners daily. Incontinence to urine, chronic. - resume oxybutynin Social: Patient lives at home alone in [place]. She has several steps outside the home. She has 2 "helpers" at different times during the day. She ambulates with a walker. Acetaminophen for mild pain when necessary. Bowel regimen Senna and MiraLAX scheduled and PRN. Zofran when necessary for nausea and vomiting. High-risk medications: NONE. Patient Status: Patient changed obs to inaptient on 07/03 with expected length of stay greater than 2 midnights due to severity of presenting symptoms, risk of adverse event, and complexity of treatment plan. VTE Mechanical Devices: Intermittant Pneumatic CD Resuscitation Status: DNR/DNI:Do Not Resuscitate/Intubate Lucius Sanchez MD Jul 04, 2017 13:52
[2017-07-04] MEDS: Lactated Ringer's 1,000 ML IV SCH (15:14)
[2017-07-04 15:31] VITALS: BP 155/80; PULSE 72; RESP 16; O2SAT 96
--- NOTE | 2017-07-04 18:46 | NUR ---
Activity and Meds Up to chair with minimal 1PA and FWW. Movements slow and shuffling. Sinemet started this shift, plan is to increase dosing if tolerated.
--- NOTE | 2017-07-04 20:56 | PROG NOTE ---
[address] [address] PROGRESS NOTE PATIENT: MAURIZIO AREVALO : 1930 MR#: [id number] ADMIT: 07/01/2017 JOB ID: [id number] DATE: 07/04/2017 SUBJECTIVE: Patient reports that she feels better today. She reports that she has greater range of motion and still feels a mild degree of dizziness, however, was able to ambulate with a walker with physical therapy. She reports occasional nausea. However, reports that at baseline, she has nausea. She reports intermittent vertigo, however, reports that this has improved. She reports that she is tolerating the medication with no side effects. PHYSICAL EXAMINATION: Vital signs: Temperature 36.6, pulse of 72, respiratory rate of 16, blood pressure 155/80, pulse oximetry 96% on room air. General: She is a well-developed, well-nourished woman, in no acute distress. Head: Normocephalic, atraumatic. Neck supple. No carotid bruits were auscultated bilaterally. Chest: Clear to auscultation. Heart: Regular rate and rhythm. Abdomen: Soft, nondistended, nontender. Extremities: No cyanosis, clubbing, or edema. NEUROLOGIC EXAMINATION: Mental status: She is awake, alert, and oriented x3. Speech is clear and fluent. Less dysphonic today. No aphasia. She still does have masked facies with hypomimia. Cranial nerves: Pupils equal, round, and reactive to light. Extraocular movements were smooth and conjugate with no evidence of nystagmus. Face appeared symmetrical. Masked facies and hypomimia were present. Facial sensation was intact to light touch and temperature. Auditory sensation was intact to finger rub. Palatal elevation was symmetrical. Tongue was midline. Sternocleidomastoid and trapezii were 5/5 bilaterally. Motor: The increased tone appeared improved throughout and especially improved in the right upper extremity. Again, a mild degree of slowing was noted with finger tapping as well as hand opening and closing, and rapidly alternating movements. However, did appear slightly improved compared to yesterday. There was an intermittent resting 4-6 hertz tremor that appeared less prominent in the right upper extremity today. Sensation was intact to light touch and temperature. Deep tendon reflexes were 2+ with the exception of the Achilles where they were trace. Plantars were flexor bilaterally. Gait was deferred. IMPRESSION: Parkinson disease. RECOMMENDATIONS: As she is tolerating a half tablet of carbidopa/levodopa 25/100 three times a day, I recommend increasing to one full tablet of carbidopa/levodopa 25/100 three times daily tomorrow. We discussed side effects of nausea and potentially dizziness. We will continue to follow. Thank you, again, Dr. Sanchez, for allowing me to participate in the care of your patient. Please feel free to contact me with any questions or concerns.
[2017-07-04 22:04] VITALS: BP 131/72; PULSE 68; RESP 16; O2SAT 94
[2017-07-05] MEDS: Lactated Ringer's 1,000 ML IV SCH (03:19)
--- NOTE | 2017-07-05 06:13 | NUR ---
NOC activity Pt pleasant and cooperative with care. More active and participates more with care. HS meds administered as scheduled. VSS and has been afebrile overnight. Intentional hourly rounding done. Addendum: 07/05/17 at 0639 by BRENDA LLAMAS RN Pt reports of feeling shaky and warm @ 0630. Vitals elevated 175/84, pulse 66, Temp 97.9 and o2 sats 96%. Blood glucose check noted 84. IVF LR held due to elevated BP. Will notify
[2017-07-05 06:30] VITALS: BP 175/84; PULSE 66; RESP 16; O2SAT 97
[2017-07-05 08:16] VITALS: BP 180/84; PULSE 97; RESP 17; O2SAT 96
[2017-07-05] MEDS: Pantoprazole 40 mg ER24 Tablet PO SCH (09:22)
[2017-07-05 11:05] VITALS: BP 170/81; PULSE 64; RESP 18; O2SAT 98
--- NOTE | 2017-07-05 15:20 | PCM.PNMED ---
Subjective Date of Service Jul 05, 2017 Subjective Pt's BP was elevated this AM, IVF stopped. Had not been taking Amlodipine. Pt started on Carbidopa-Levodopa and tolerated. More active today. Exam Vital Signs Vital Sign - Last Date Time Temp Pulse Resp B/P Pulse Ox O2 Delivery O2 Flow Rate FiO2 07/05/17 11:05 36.4 64 18 170/81 98 Room Air Intake and Output 07/04/17 07/04/17 07/05/17 Cumulative From/Thru 15:00 23:00 07:00 07/01/17 12:10 - 07/05/17 06:45 Intake Total 175 ml 2011 ml 875 ml 7474 ml Output Total 900 ml 700 ml 6400 ml Balance -725 ml 1311 ml 875 ml 1074 ml Intake Oral 175 ml 903 ml 3032 ml IV Total 1108 ml 875 ml 4442 ml Output Urine Total 900 ml 700 ml 6400 ml # Bowel Movements 1 1 2 Exam General: Elderly lady lying in bed in no acute distress, well-developed, well- nourished, appropriately interactive HEENT: Normocephalic, atraumatic. External ears without defect. Pupils equal, round, and reactive to light and accommodation. Anicteric sclerae, moist conjunctivae, and no lid lag. Oropharynx free of erythema and cobble stoning with moist mucosa. Neck: Supple with full range of motion. No jugular venous distension. No bruits. No lymphadenopathy or thyromegaly. Cardiovascular: Regular rate and rhythm with no murmurs, rubs, or gallops appreciated Pulmonary: Clear to auscultation bilaterally with no crackles, wheezes, or rhonchi. Normal respiratory effort with no use of accessory muscles. Abdomen: Bowel tones present. Soft, nontender, nondistended. No hepatosplenomegaly or masses appreciated. Extremities: No clubbing, cyanosis, edema, or lymphadenopathy appreciated. Skin: Normal temperature, turgor, and texture; no rash, ulcers, or subcutaneous nodules appreciated. Neurological: +Masked facies, flat affect. CN2-12 intact. No sensory deficits. Rigidity with movement. +Resting tremor upper extremities. MSK: Equal hand clinical support nurse strength Psychiatric: Normal mood and affect. Alert and oriented to person, place, and time. Flat facies IVs and Medications Medications Reviewed: Medications were reviewed in detail Lab and Diagnostics Result Diagram: 07/03/17 0815 07/05/17 0550 X-Rays, CTs and MRIs 07/03/17- CT ANGIO HEAD AND NECK 1. Left vertebral artery is nonvisualized on recent carotid duplex, but the nondominant artery does appear patent throughout its length on CT angiography, with stenosis at its origin from atherosclerotic calcification. 2. Less than 50% stenosis involves the origin of the right internal carotid artery from atherosclerotic calcification. Left carotid bifurcation appears widely patent. 3. Asymmetric moderate right mastoid air cell fluid may suggest mastoiditis. 4. No acute intracranial abnormalities. Moderate periventricular and deep white matter chronic small vessel ischemic change. 5. No hemodynamically significant lesions of the central intracranial vasculature. origin of the left posterior cerebral artery is present, a vascular anatomic variant. CT BRAIN WITHOUT CONTRAST IMPRESSION: 1. No acute intracranial abnormalities. 2. Cerebral volume loss and chronic microvascular ischemic changes. Approved by: Roxana Amin M.D. on 07/01/2017 at 20:49 X-RAY CHEST ONE VIEW, PORTABLE IMPRESSION: No acute pulmonary process. Approved by: Jessie Childress M.D. on 07/01/2017 at 13:20 Assessment & Plan Ms. Leif Jeff is a very pleasant 87 year old lady with a past medical history significant for Hypertension, CAD s/p 2 stents ~ 4 years ago, pacemaker insertion ~ 5 years ago, peripheral vascular disease with 2 upper extremity stents who presents to the [facility] Emergency Department due to generalized weakness and non traumatic fall from ground level and currently being worked up for weakness and gait ataxia with suspicion of Parkinson's disease. Generalized weakness with gait imbalance, present on admission. Active. - unclear etiology. suspicion of Parkinson's disease. Posterior circulation abnormality ruled out per CTA 07/03. Does not appear to be syncope related. - CT brain as above. - No acute intracranial abnormalities. - Tx for UTI, no other evidence of infection. CXR - no acute cardiopulmonary process. - Repelte electrolytes prn. - Neurology Consulted- Dr. Lea- suspicion of Parkinson's diseas. rec starting Carbidopa-Levodopa at 1/2 Tab TID, and inc to 1 full tab TID. - PT rec SNF. Pre-Syncope- poa, resolved. Hx of Pacemaker- Likely 2/2 to chronic Vertigo and is taking Meclizine. Positive Ortho VS in ED suggest hypovolemia component. Rcvd IVF. Less likely cardiac etiology. - EKG reviewed - V-paced ~60. - Echo- EF 55-60%. No major structural abn. - Amlodipine was held, resumed 07/05. HTN- poa, active. - Amlodipine was held, resumed 07/05. Acute Kidney Injury, present on admission. Resolved. - Cr - 1.43, baseline 1-1.3. Likely 2/2 to prerenal etiology on admit. - Pt given contrast for CTA. Given pre and post IVF tx for Contrast induced Nephropathy, Monitored Scr over next 2 days. Returned to baseline. UTI- poa, resolved. Treated with Ciprofloxacin for 3 days. Acute Nausea, present on admission. Resolved. - Zofran / Meclizine 25 mg PRN. Chronic Conditions: History of various Vasculopathies: CAD x2 stents, PAD x2 stents. -Continue home statin. - ASA 81 mg daily. History of Hiatal Hernia/ GERD. - Continue home Pantoprazole. Hyperlipidemia - Patient reports d/c'ing home Atorvastatin 20 mg HS. She received 1 dose here. Constipation. - Continue home Stool softeners daily. Incontinence to urine, chronic. - resume oxybutynin Social: Patient lives at home alone in [place]. She has several steps outside the home. She has 2 "helpers" at different times during the day. She ambulates with a walker. Acetaminophen for mild pain when necessary. Bowel regimen Senna and MiraLAX scheduled and PRN. Zofran when necessary for nausea and vomiting. High-risk medications: NONE. Patient Status: Patient changed obs to inaptient on 07/03 with expected length of stay greater than 2 midnights due to severity of presenting symptoms, risk of adverse event, and complexity of treatment plan. Dispo- Pt will be discharged to SNF for Physical Therapy. VTE Mechanical Devices: Intermittant Pneumatic CD Resuscitation Status: DNR/DNI:Do Not Resuscitate/Intubate Lucius Sanchez MD Jul 05, 2017 15:20
[2017-07-05 16:05] VITALS: BP 172/76; PULSE 70; RESP 20; O2SAT 97
--- NOTE | 2017-07-05 18:23 | PROG NOTE ---
[address] [address] PROGRESS NOTE PATIENT: MAURIZIO AREVALO : 1930 MR#: [id number] ADMIT: 07/01/2017 JOB ID: [id number] DATE: 07/05/2017 SUBJECTIVE: The patient reports that she has been tolerating the medications. Her blood pressures did go up. However, her amlodipine had been held initially and is now restarted. She was able to ambulate with physical therapy. There has been some degree of improvement in her mobility after starting the carbidopa/levodopa. She is now taking one tablet three times daily. We discussed the diagnosis of Parkinson disease in detail. We discussed the importance of fall prevention and the importance of exercise and building up her mobility. The plan is to go to a [facility] facility and obtain further rehabilitation. She would also benefit from following up with her primary care provider within 1-2 weeks of discharge from that institution. I look forward to seeing her in followup at some point in my clinic. Her primary care doctor is Tyler Kirkpatrick MD. OBJECTIVE/PHYSICAL EXAMINATION: Temperature 37.0, pulse of 70 respiratory rate of 20, blood pressure 172/76, pulse oximetry 97% on room air. General: She is a well-developed, well-nourished woman, in no acute distress. Head: Normocephalic, atraumatic. Neck supple. No carotid bruits were auscultated bilaterally. Chest clear to auscultation. Heart: Regular rate and rhythm. Abdomen: Soft, nondistended, nontender. Extremities: No cyanosis, clubbing, or edema. NEUROLOGIC EXAMINATION: Mental status: She is awake, alert, and oriented x3. Speech is clear and fluent. Dysphonia has improved. Hypomimia also appears to be somewhat improved. No aphasia was noted. Cranial nerves: Pupils equal, round, and reactive to light. Extraocular movements were smooth and conjugate with no evidence of nystagmus. Face appeared symmetrical. Hypomimia present. However, appears mildly improved. Facial sensation was intact to light touch and temperature. Auditory sensation was intact to finger rub bilaterally. Palatal elevation was symmetrical. Tongue was midline. Sternocleidomastoid and trapezius were 5/5 bilaterally. Motor: There is less bradykinesia on examination today. There is still some degree of increased tone in the right upper and right lower extremities. However, they do appear improved. She does have a mild degree of slowing with finger tapping as well as hand opening and closing and rapidly alternating movements involving her bilateral upper extremities. There is an intermittent resting 4-6 hertz tremor most apparent in the right upper extremity. However, appeared to be less frequently apparent today on examination and the amplitude appeared reduced. Sensation was intact to light touch and temperature. Deep tendon reflexes were 2+ with the exception of the Achilles where they were trace. Plantars were flexor bilaterally. Gait was deferred. Parkinson disease. Ataxia and imbalance. RECOMMENDATIONS: Continue carbidopa/levodopa 25/100 three times daily as tolerated. Reviewed side effects in detail. She does report that she has intermittent episodes of nausea, however, has been able to tolerate the medication. We discussed the importance of fall prevention. She would benefit from continued physical therapy/occupational therapy. She would benefit from placement in a [facility] facility. She would benefit from continued rehabilitative therapy. I recommend that she follow up with Dr. Kirkpatrick within 1-2 weeks of discharge from that institution. She would also benefit from followup with me at some point in the future. Thank you, again, Dr. Sanchez for allowing me to participate in the care of this delightful patient. Please feel free to contact me with any questions or concerns.
[2017-07-05 21:12] VITALS: BP 143/75; PULSE 68; RESP 18; O2SAT 93
[2017-07-06 03:39] VITALS: BP 174/71; PULSE 67; RESP 18; O2SAT 97
[2017-07-06] MEDS: Pantoprazole 40 mg ER24 Tablet PO SCH (07:44)
[2017-07-06 09:54] VITALS: BP 151/79; PULSE 69
--- NOTE | 2017-07-06 12:51 | PCM.PNMED ---
Subjective Date of Service Jul 06, 2017 Subjective Elevated Blood pressure overnight >170//70 on multiple readings. Pt says feels slightly stronger today but still overall unstable when ambulating. Exam Vital Signs Vital Sign - Last Date Time Temp Pulse Resp B/P Pulse Ox O2 Delivery O2 Flow Rate FiO2 07/06/17 11:21 Room Air 07/06/17 09:54 69 151/79 07/06/17 03:39 36.5 18 97 Intake and Output 07/05/17 07/05/17 07/06/17 Cumulative From/Thru 15:00 23:00 07:00 07/01/17 12:10 - 07/06/17 06:54 Intake Total 500 ml 786 ml 300 ml 9060 ml Output Total 1925 ml 1175 ml 1400 ml 40783 ml Balance -1425 ml -389 ml -1100 ml -1840 ml Intake Oral 500 ml 786 ml 300 ml 4618 ml IV Total 4442 ml Output Urine Total 1925 ml 1175 ml 1400 ml 74902 ml # Bowel Movements 2 0 0 4 Exam General: Elderly lady lying in bed in no acute distress, well-developed, well- nourished, appropriately interactive HEENT: Normocephalic, atraumatic. External ears without defect. Pupils equal, round, and reactive to light and accommodation. Anicteric sclerae, moist conjunctivae, and no lid lag. Oropharynx free of erythema and cobble stoning with moist mucosa. Neck: Supple with full range of motion. No jugular venous distension. No bruits. No lymphadenopathy or thyromegaly. Cardiovascular: Regular rate and rhythm with no murmurs, rubs, or gallops appreciated Pulmonary: Clear to auscultation bilaterally with no crackles, wheezes, or rhonchi. Normal respiratory effort with no use of accessory muscles. Abdomen: Bowel tones present. Soft, nontender, nondistended. No hepatosplenomegaly or masses appreciated. Extremities: No clubbing, cyanosis, edema, or lymphadenopathy appreciated. Skin: Normal temperature, turgor, and texture; no rash, ulcers, or subcutaneous nodules appreciated. Neurological: +Masked facies, flat affect. CN2-12 intact. No sensory deficits. Rigidity with movement. +Resting tremor upper extremities. MSK: Equal hand curtain inspector strength Psychiatric: Normal mood and affect. Alert and oriented to person, place, and time. Flat facies IVs and Medications Medications Reviewed: Medications were reviewed in detail Lab and Diagnostics Result Diagram: 07/03/17 0815 07/05/17 0550 X-Rays, CTs and MRIs 07/03/17- CT ANGIO HEAD AND NECK 1. Left vertebral artery is nonvisualized on recent carotid duplex, but the nondominant artery does appear patent throughout its length on CT angiography, with stenosis at its origin from atherosclerotic calcification. 2. Less than 50% stenosis involves the origin of the right internal carotid artery from atherosclerotic calcification. Left carotid bifurcation appears widely patent. 3. Asymmetric moderate right mastoid air cell fluid may suggest mastoiditis. 4. No acute intracranial abnormalities. Moderate periventricular and deep white matter chronic small vessel ischemic change. 5. No hemodynamically significant lesions of the central intracranial vasculature. origin of the left posterior cerebral artery is present, a vascular anatomic variant. CT BRAIN WITHOUT CONTRAST IMPRESSION: 1. No acute intracranial abnormalities. 2. Cerebral volume loss and chronic microvascular ischemic changes. Approved by: Roxana Amin M.D. on 07/01/2017 at 20:49 X-RAY CHEST ONE VIEW, PORTABLE IMPRESSION: No acute pulmonary process. Approved by: Jessie Childress M.D. on 07/01/2017 at 13:20 Assessment & Plan Ms. Leif Jeff is a very pleasant 87 year old lady with a past medical history significant for Hypertension, CAD s/p 2 stents ~ 4 years ago, pacemaker insertion ~ 5 years ago, peripheral vascular disease with 2 upper extremity stents who presents to the [facility] Emergency Department due to generalized weakness and non traumatic fall from ground level and currently being worked up for weakness and gait ataxia with suspicion of Parkinson's disease. Generalized weakness with gait imbalance, present on admission. Active. - unclear etiology. suspicion of Parkinson's disease. Posterior circulation abnormality ruled out per CTA 07/03. Does not appear to be syncope related. - CT brain as above. - No acute intracranial abnormalities. - Tx for UTI, no other evidence of infection. CXR - no acute cardiopulmonary process. - Repelte electrolytes prn. - Neurology Consulted- Dr. Lea- suspicion of Parkinson's diseas. rec starting Carbidopa-Levodopa at 1/2 Tab TID, and inc to 1 full tab TID. - PT rec SNF. Pre-Syncope- poa, resolved. Hx of Pacemaker- Likely 2/2 to chronic Vertigo and is taking Meclizine. Positive Ortho VS in ED suggest hypovolemia component. Rcvd IVF. Less likely cardiac etiology. - EKG reviewed - V-paced ~60. - Echo- EF 55-60%. No major structural abn. - Amlodipine was held, resumed 07/05. HTN- poa, active. - Amlodipine was held, resumed 07/05. Increased dose from 5mg to 10mg. Acute Kidney Injury, present on admission. Resolved. - Cr - 1.43, baseline 1-1.3. Likely 2/2 to prerenal etiology on admit. - Pt given contrast for CTA. Given pre and post IVF tx for Contrast induced Nephropathy, Monitored Scr over next 2 days. Returned to baseline. UTI- poa, resolved. Treated with Ciprofloxacin for 3 days. Acute Nausea, present on admission. Resolved. - Zofran / Meclizine 25 mg PRN. Chronic Conditions: History of various Vasculopathies: CAD x2 stents, PAD x2 stents. -Continue home statin. - ASA 81 mg daily. History of Hiatal Hernia/ GERD. - Continue home Pantoprazole. Hyperlipidemia - Patient reports d/c'ing home Atorvastatin 20 mg HS. She received 1 dose here. Constipation. - Continue home Stool softeners daily. Incontinence to urine, chronic. - resume oxybutynin Social: Patient lives at home alone in [place]. She has several steps outside the home. She has 2 "helpers" at different times during the day. She ambulates with a walker. Acetaminophen for mild pain when necessary. Bowel regimen Senna and MiraLAX scheduled and PRN. Zofran when necessary for nausea and vomiting. High-risk medications: NONE. Dispo- [facility], anticipate 07/07 once BP well controlled. -Amlodipine-Increased dose from 5mg to 10mg. -New medication for Parkinson's Disease started, Carbidopa-Levodopa. -Follow up with Neurology, Dr. Lea as outpatient. Pain Evaluation: Adequate Pain Control VTE Prophylaxis: Sub-Q Heparin (Unfractionated) VTE Mechanical Devices: Intermittant Pneumatic CD Resuscitation Status: DNR/DNI:Do Not Resuscitate/Intubate Lucius Sanchez MD Jul 06, 2017 12:51
[2017-07-06 13:34] VITALS: BP 135/64; PULSE 69; RESP 18; O2SAT 97
--- NOTE | 2017-07-06 15:31 | NUR ---
Social Work: Readiness For Discharge Data: EMR reviewed. Patient is on day 5 of hospitalization for UTI & weakness per H&P. Patient was discussed in morning rounds. Patient has been deemed medically stable for discharge in AM per MD. Patient will discharge to [facility]. SW met with patient and family at bedside. SW role explained. Family had questions regarding discharge process for tomorrow. Plan is for patient to discharge via transportation provider. Family will bring patient's belongings and meet patient at [facility] tomorrow evening. KRISTA Gaitan asked that she be contacted at [phone] tomorrow when transportation detailed have been confirmed. SW will continue to follow. Assessment: Patient will discharge to [facility]. Plan: Patient will discharge to [facility] tomorrow 07/07. SW will need to contact KRISTA Gaitan to notify of transport time. SW will continue to follow. CHAVA Fritz
[2017-07-06] MEDS: Heparin 5,000 Unit/mL Inj SUBQ SCH (16:18)
--- NOTE | 2017-07-06 19:38 | NUR ---
BP and activity BP reduced this shift after med doses adjusted, Q8H checks at this time. Up to BSC with SBA and FWW. Steady on feet but requires cuing to avoid pausing and encouragement for disparaging remarks.
[2017-07-06 21:15] VITALS: BP 161/88; PULSE 72; RESP 18; O2SAT 97
[2017-07-07] MEDS: Heparin 5,000 Unit/mL Inj SUBQ SCH ×2 (00:38→09:04)
--- NOTE | 2017-07-07 02:47 | NUR ---
Pain Patient states that she has a mild headache this shift. Tylenol given. Patient's headache resolved.Patient A&OX3. Vitals stable. Patient up sitting at side of bed to brush teeth at beginning of shift.
[2017-07-07 04:50] VITALS: BP 146/84; PULSE 66; RESP 18; O2SAT 97
[2017-07-07] MEDS: Pantoprazole 40 mg ER24 Tablet PO SCH (09:04)
--- NOTE | 2017-07-07 09:22 | NUR ---
EZEQUIEL signed. CHAVA Meza
--- NOTE | 2017-07-07 11:38 | PCM.DC.MED ---
Discharge Summary Date of Service Jul 07, 2017 Dates of Hospitalization Date of Hospital Admission Jul 01, 2017 at 17:27 Date of Discharge: Jul 07, 2017 Providers: Admitting Physician: Abida Quan DO Primary Care Physician: Tyler Kirkpatrick MD Attending Physician: Edward Broderick MD Diagnosis at Time of Discharge Diagnosis at Time of Discharge Generalized weakness with gait imbalance due to undiagnosed Parkinson's Disease , present on admission. Active. Pre-Syncope- poa, resolved. HTN- poa, active. Acute Kidney Injury, present on admission. Resolved. UTI- poa, resolved. Acute Nausea, present on admission. Resolved. Chronic Conditions: History of various Vasculopathies: CAD x2 stents, PAD x2 stents. History of Hiatal Hernia/ GERD. Hyperlipidemia Incontinence to urine, chronic. Consultations Neurology- Dr. Lea Procedures XRay, CTs & MRIs 07/03/17- CT ANGIO HEAD AND NECK 1. Left vertebral artery is nonvisualized on recent carotid duplex, but the nondominant artery does appear patent throughout its length on CT angiography, with stenosis at its origin from atherosclerotic calcification. 2. Less than 50% stenosis involves the origin of the right internal carotid artery from atherosclerotic calcification. Left carotid bifurcation appears widely patent. 3. Asymmetric moderate right mastoid air cell fluid may suggest mastoiditis. 4. No acute intracranial abnormalities. Moderate periventricular and deep white matter chronic small vessel ischemic change. 5. No hemodynamically significant lesions of the central intracranial vasculature. origin of the left posterior cerebral artery is present, a vascular anatomic variant. CT BRAIN WITHOUT CONTRAST IMPRESSION: 1. No acute intracranial abnormalities. 2. Cerebral volume loss and chronic microvascular ischemic changes. Approved by: Roxana Amin M.D. on 07/01/2017 at 20:49 X-RAY CHEST ONE VIEW, PORTABLE IMPRESSION: No acute pulmonary process. Approved by: Jessie Childress M.D. on 07/01/2017 at 13:20 Brief History Per HPI by Dr. Giang on 07/07/17 Ms. Leif Jeff is a very pleasant 87 year old lady with a past medical history significant for Hypertension, CAD s/p 2 stents ~ 4 years ago, pacemaker insertion ~ 5 years ago, peripheral vascular disease with 2 upper extremity stents who presents to the [facility] Emergency Department due to generalized weakness and non traumatic fall from ground level and could not get up. She reports feeling lightheaded but does not think she passed out or hit her head. She report feeling weak for 2-3 weeks, and has been progressively week for the past 7 days. Patient's neighbor is visiting in the room, and she notes that the patient has been appearing expression-less or flat for 1 week. Patient does report some dizziness, nausea at the moment, feeling cold and clammy and sweaty, leg pain bilaterally, endorsing slow rate loss .She reports mild nausea, intermittent mild fevers/chills, abdominal pain that has resolved, and SOB that has resolved. She denies change in vision, chest pain, palpitations , vomiting, diarrhea, dysuria. She reports chronic constipation. Social: Patient lives at home alone in [place]. She has several steps outside the home. She has 2 "helpers" at different times during the day. She ambulates with a walker. In the ED patients vitals: T-35.8, HR-71, RR-15, BP-150/49, 96% on RA. EKG reviewed - V-paced ~60. In the ED patient received: Statin, IV fluids. UA - contaminated. Repeat ordered. CXR - no acute cardiopulmonary process. CT brain- 1. No acute intracranial abnormalities. 2. Cerebral volume loss and chronic microvascular ischemic changes. Hospital Course Ms. Leif Jeff is a very pleasant 87 year old lady with a past medical history significant for Hypertension, CAD s/p 2 stents ~ 4 years ago, pacemaker insertion ~ 5 years ago, peripheral vascular disease with 2 upper extremity stents who presents to the [facility] Emergency Department due to generalized weakness and non traumatic fall from ground level and currently being worked up for weakness and gait ataxia with suspicion of Parkinson's disease. Generalized weakness with gait imbalance due to undiagnosed parkinson's disease , present on admission. Active. - unclear etiology. suspicion of Parkinson's disease. Posterior circulation abnormality ruled out per CTA 07/03. Does not appear to be syncope related. - CT brain as above. - No acute intracranial abnormalities. - Tx for UTI, no other evidence of infection. CXR - no acute cardiopulmonary process. - Repelte electrolytes prn. - Neurology Consulted- Dr. Lea- suspicion of Parkinson's diseas. rec starting Carbidopa-Levodopa at 1/2 Tab TID, and inc to 1 full tab TID. Monitor for adverse effects nausea, GI upset, dizziness. Pre-Syncope- poa, resolved. Hx of Pacemaker- Likely 2/2 to chronic Vertigo and is taking Meclizine. Positive Ortho VS in ED suggest hypovolemia component. Rcvd IVF. Less likely cardiac etiology. - EKG reviewed - V-paced ~60. - Echo- EF 55-60%. No major structural abn. - Amlodipine was held, resumed 07/05. HTN- poa, active. - Amlodipine was held, resumed 07/05. Increased dose from 5mg to 10mg. Acute Kidney Injury, present on admission. Resolved. - Cr -1.43, baseline 1-1.3. Likely 2/2 to prerenal etiology on admit. - Pt given contrast for CTA. Given pre and post IVF tx for Contrast induced Nephropathy, Monitored Scr over next 2 days. Returned to baseline. UTI- poa, resolved. Treated with Ciprofloxacin for 3 days. Acute Nausea, present on admission. Resolved. - Zofran / Meclizine 25 mg PRN. Chronic Conditions: History of various Vasculopathies: CAD x2 stents, PAD x2 stents. -Continue home statin. - ASA 81 mg daily. History of Hiatal Hernia/ GERD. - Continue home Pantoprazole. Hyperlipidemia - Patient reports d/c'ing home Atorvastatin 20 mg HS. She received 1 dose here. Constipation. - Continue home Stool softeners daily. Incontinence to urine, chronic. - resume oxybutynin Social: Patient lives at home alone in [place]. She has several steps outside the home. She has 2 "helpers" at different times during the day. She ambulates with a walker. Acetaminophen for mild pain when necessary. Bowel regimen Senna and MiraLAX scheduled and PRN. Zofran when necessary for nausea and vomiting. High-risk medications: NONE. Dispo- Pt [facility] -Amlodipine-Increased dose from 5mg to 10mg. -New medication for Parkinson's Disease started, Carbidopa-Levodopa added. -Follow up with Neurology, Dr. Lea as outpatient. Exam Vital Signs (Last) Date Time Temp Pulse Resp B/P Pulse Ox O2 Delivery O2 Flow Rate FiO2 07/07/17 04:50 36.4 66 18 146/84 97 Room Air Test 8/15/17 12:28 07/03/17 08:15 07/03/17 12:05 07/05/17 05:50 Magnesium Level 2.5mg/dL (1.6-2.6) Troponin T 0.010ug/L (0.0-0.011) Pro-B-Type Natriuretic Peptide 564.8pg/mL (0-738) Lipase 32U/L (13-60) White Blood Count 7.2th/mm3 (3.8-10.1) Red Blood Count 4.75mil/mm3 (3.90-5.20) Hemoglobin 14.4g/dL (12.0-15.6) Hematocrit 44.5% (35.0-46.0) Mean Corpuscular Volume 93.7fL (81-100) Mean Corpuscular Hemoglobin 30.3pg (27.0-35.0) Mean Corpuscular Hemoglobin Concent 32.4% (32.0-37.0) Red Cell Distribution Width 14.7% (12.3-15.4) Platelet Count 151bil/L (150-400) Neutrophils (%) (Auto) 72.0% (40-74) Lymphocytes (%) (Auto) 19.4% (14-46) Monocytes (%) (Auto) 5.8% (4-12) Eosinophils (%) (Auto) 2.6% (0-5) Basophils (%) (Auto) 0.1% (0-3) Erythrocyte Sedimentation Rate 16mm/hr (0-40) Total Bilirubin 0.3mg/dL (0.0-1.2) Aspartate Amino Transf (AST/SGOT) 22U/L (0-50) Alanine Aminotransferase (ALT/SGPT) 10U/L (0-32) Alkaline Phosphatase 77U/L (25-165) Total Creatine Kinase 121U/L (21-215) Total Protein 6.1g/dL (6.4-8.4) Albumin 3.7g/dL (3.4-5.0) Thyroid Stimulating Hormone (TSH) 2.580uIU/mL (0.450-4.500) Free Thyroxine Index 2.9 (1.2-4.9) Thyroxine (T4) 8.6ug/dL (4.5-12.0) Triiodothyronine (T3) Uptake 34% (24-39) Urine Color Yellow (YELLOW) Urine Appearance Slightly cloudy Urine pH 6.0 (5.0-8.0) Urine Specific [place] 1.025 (1.003-1.035) Urine Protein Negativemg/dL (NEG,TRACE) Urine Glucose (UA) Negativemg/dL (NEGATIVE) Urine Ketones Negativemg/dL (NEGATIVE) Urine Occult Blood Trace (NEGATIVE) Urine Nitrite Negative (NEGATIVE) Urine Bilirubin Negative (NEGATIVE) Urine Urobilinogen Normalmg/dL (NORMAL) Urine Leukocyte Esterase Small (NEGATIVE) Urine RBC 0-2/hpf (0-2) Urine WBC 0-5/hpf (0-5) Urine Epithelial Cells Occasional/hpf (NONE-MOD) Urine Crystals None seen (NONE SEEN) Urine Bacteria Few/hpf (NONE-FEW) Urine Hyaline Casts None/lpf (NONE) Urine Granular Casts None seen (NONE SEEN) Urine Waxy Casts None seen (NONE SEEN) Urine Red Blood Cell Casts None seen (NONE SEEN) Urine White Blood Cell Casts None seen (NONE SEEN) Urine Mucus None seen (None Seen) Urine Trichomonas None seen (NONE SEEN) Urine Yeast None (NONE SEEN) Urinalysis Comment None Urine Culture Reflexed Indicated Sodium Level 145mEq/L (134-144) Potassium Level 4.2mEq/L (3.5-5.2) Chloride Level 110mEq/L (97-108) Carbon Dioxide Level 23mmol/L (18-29) Blood Urea Nitrogen 22mg/dL (8-27) Creatinine 0.99mg/dL (0.57-1.00) Estimat Glomerular Filtration Rate 76mL/min (>59) Glucose Level 94mg/dL (60-99) Calcium Level 9.3mg/dL (8.5-10.1) Discharge Medications Discharge Medications Amlodipine (Amlodipine) 5 Mg Tablet 5 MG PO DAILY (Reported) Amlodipine (Amlodipine) 5 Mg Tablet 10 MG PO DAILY Prescribed by: EDWARD BRODERICK MD Ascorbate Calcium (Vitamin C) 500 Mg Tablet 1,000 MG PO DAILY (Reported) Aspirin (Aspirin) 81 Mg Tablet 81 MG PO DAILY (Reported) Atorvastatin (Lipitor) 20 Mg Tablet 40 MG PO HS Prescribed by: EDWARD BRODERICK MD Carbidopa/Levodopa 25-100 mg (Carbidopa/Levodopa 25-100 mg) 1 Each Tablet 1 TABLET PO TID Prescribed by: EDWARD BRODERICK MD Cholecalciferol (Vitamin D3) (Vitamin D3) 5,000 Unit Tablet 5,000 UNIT PO DAILY (Reported) Docusate Sodium (Colace) 100 Mg Capsule 200 MG PO DAILY (Reported) Multivitamin/Iron/Folic Acid (Centrum Complete Multivit Tab) 1 Each Tablet 1 TAB PO DAILY (Reported) Pantoprazole DR (Protonix) 40 Mg Tablet.dr 40 MG PO DAILY (Reported) As needed Acetaminophen (Acetaminophen) 500 Mg Capsule 1,000 MG PO q6 hours PRN PRN For Pain (Reported) Oxybutynin Chloride (Oxybutynin Chloride) 5 Mg Tablet 2.5 MG PO DAILY PRN PRN incontinence (Reported) Additional med instructions -Amlodipine-Increased dose from 5mg to 10mg daily. -Atorvastatin increased to 40mg daily. -New medication for Parkinson's Disease started, Carbidopa-Levodopa added. -Stop taking Meclizine, can resume after you follow up with your PCP if still having symptoms of vertigo/dizziness. Followup Plan Disposition: Dispo- Pt discharged to [facility] for Physical Therapy Follow-up plan Follow up with your primary care provider, Dr. Petersen in 2 weeks. Discharge Diet: No restrictions Discharge Activity: Other (Daily PT) Provider: Orlando Lea MD Follow-up in: 2 weeks Time spent Greater than 30 minutes was spent in preparation of discharge with greater than 50% of that time dedicated to patient counseling and coordination of care. Edward Broderick MD Jul 07, 2017 11:38
[2017-07-07] MEDS ORDERED: AMLO5TAB2 PO (11:48)
[2017-07-07] MEDS ORDERED: CARB1TAB14 PO (11:48)
[2017-07-07] MEDS ORDERED: ATOR20TA PO (11:48)
--- NOTE | 2017-07-07 11:49 | PCM.DIMED ---
Discharge Instructions Date of Service Jul 07, 2017 Dates of Hospitalization Jul 01, 2017 at 17:27 Discharge Diagnosis Discharge Diagnosis Generalized weakness with gait imbalance due to undiagnosed Parkinson's Disease , present on admission. Active. Pre-Syncope- poa, resolved. HTN- poa, active. Acute Kidney Injury, present on admission. Resolved. UTI- poa, resolved. Acute Nausea, present on admission. Resolved. Chronic Conditions: History of various Vasculopathies: CAD x2 stents, PAD x2 stents. History of Hiatal Hernia/ GERD. Hyperlipidemia Incontinence to urine, chronic. Medication Instructions Additional med instructions -Amlodipine-Increased dose from 5mg to 10mg daily. -Atorvastatin increased to 40mg daily. -New medication for Parkinson's Disease started, Carbidopa-Levodopa added. -Stop taking Meclizine, can resume after you follow up with your PCP if still having symptoms of vertigo/dizziness. Diet Discharge Diet: No restrictions Activity Discharge Activity: Other (Daily PT) Patient Instructions Follow-up plan Follow up with your primary care provider, Dr. Petersen in 2 weeks. Provider: Orlando Lea MD Follow-up in: 2 weeks Lucius Sanchez MD Jul 07, 2017 11:49
--- NOTE | 2017-07-07 12:23 | NUR ---
Social Work-discharge: Data:EMR Reviewed. Pt is on day 6 of hospitalization for UTI and weakness per H&P. Pt is medically stable for discharge. MIRANDA spoke with [facility] who is agreeable to accept tp today. [facility] arranged transport for 1415. SW faxed orders to [facility] and confirmed this has been received, packet created. SW updated pt at bedside and she is agreeable to plan. SW updated pt's friend Zulma regarding discharge time. PT continues to recommend SNF. RN,UC,pt/family, and [facility] all updated and agreeable to plan. Assessment:pt who would benefit from SNF. Plan:Pt to discharge to [facility] today via cabulance at 1415. RN,UC,pt/family, and [facility] all updated and agreeable to plan. CHAVA Meza
[2017-07-07 13:18] VITALS: BP 122/56; PULSE 71; RESP 18; O2SAT 98
== END 2017-07-07 14:17 | DRG 57 ==
LOC: SED 12:05 → OBSVTOIN 17:27 → INTOOBSV 17:27 → MPC 17:27
PROVIDERS: ADMIT Family Medicine; ATTEND Internal Medicine
DX: G20 Parkinson's disease (principal); N39.0 Urinary tract infection, site not specified; N17.9 Acute kidney failure, unspecified; I25.10 Atherosclerotic heart disease of native coronary artery without angina pectoris; I73.9 Peripheral vascular disease, unspecified; E78.5 Hyperlipidemia, unspecified; R32 Unspecified urinary incontinence; I10 Essential (primary) hypertension; K59.00 Constipation, unspecified; Z66 Do not resuscitate; K21.9 Gastro-esophageal reflux disease without esophagitis; K44.9 Diaphragmatic hernia without obstruction or gangrene; R11.0 Nausea; R26.81 Unsteadiness on feet; Z79.82 Long term (current) use of aspirin; Z95.0 Presence of cardiac pacemaker; Z95.5 Presence of coronary angioplasty implant and graft; Z95.828 Presence of other vascular implants and grafts